=== PATIENT | male | born 1980 | race American Indian/Alaskan Native ===

== ENCOUNTER 2017-10-03 11:53 | Emergency (ER) | payer OTHER ==
[2017-10-03 12:18] VITALS: BP 124/79
[2017-10-03] MEDS ORDERED: TORADOL IM ONE (15:29)
--- NOTE | 2017-10-03 16:15 | Emergency Department Report ---
ED ENT HPI - General Chief complaint: Dental/Oral Stated complaint: TOOTHACHE Time Seen by Provider: 10/03/17 14:54 Source: patient Mode of arrival: Ambulatory Limitations: No Limitations - History of Present Illness Initial comments: This is a 37-year-old male nontoxic, well nourished in appearance, no acute signs of distress presents to the ED with c/o of dental pain 2 days. Patient denies any facial swelling. Patient denies any fever, chills, nausea, vomiting , just mentions of breath. Patient denies following up with a dentist. Patient denies any allergies or past medical history. MD complaint: tooth pain -: days(s) (2) Location: tooth # (18) 1 - toothache Severity: mild Severity scale (0 -10): 8 Quality: aching Consistency: constant Improves with: none Worsens with: none Context- Dental: history of dental caries, poor dental care Associated Symptoms: gum swelling, toothache. denies: fever, cough, pain with swallowing, sore throat, tinnitus, hearing loss, discharge from ear, rhinorrhea - Related Data Previous Rx's Medication Instructions Recorded Last Taken Type Amoxicillin 500 mg PO Q12H #20 tablet 11/24/14 Unknown Rx HYDROcodone/APAP 5-325 [[place] 1 each PO Q6HR PRN #12 tablet 11/24/14 Unknown Rx 5-325 mg TAB] Ibuprofen [Motrin 600 MG tab] 600 mg PO Q8H PRN #30 tablet 11/24/14 Unknown Rx Amoxicillin/K Clav Tab [Augmentin 1 tab PO Q12HR #20 tab 10/03/17 Unknown Rx 875 mg] traMADol [Ultram] 50 mg PO Q6HR PRN #12 tablet 10/03/17 Unknown Rx Allergies Allergy/AdvReac Type Severity Reaction Status Date / Time No Known Allergies Allergy Verified 10/03/17 12:16 ED Dental HPI - General Chief complaint: Dental/Oral Stated complaint: TOOTHACHE Time Seen by Provider: 10/03/17 14:54 Source: patient Mode of arrival: Ambulatory Limitations: No Limitations - Related Data Previous Rx's Medication Instructions Recorded Last Taken Type Amoxicillin 500 mg PO Q12H #20 tablet 11/24/14 Unknown Rx HYDROcodone/APAP 5-325 [[place] 1 each PO Q6HR PRN #12 tablet 11/24/14 Unknown Rx 5-325 mg TAB] Ibuprofen [Motrin 600 MG tab] 600 mg PO Q8H PRN #30 tablet 11/24/14 Unknown Rx Amoxicillin/K Clav Tab [Augmentin 1 tab PO Q12HR #20 tab 10/03/17 Unknown Rx 875 mg] traMADol [Ultram] 50 mg PO Q6HR PRN #12 tablet 10/03/17 Unknown Rx Allergies Allergy/AdvReac Type Severity Reaction Status Date / Time No Known Allergies Allergy Verified 10/03/17 12:16 ED Review of Systems ROS: Stated complaint: TOOTHACHE Other details as noted in HPI Constitutional: denies: chills, fever Eyes: denies: eye pain, eye discharge, vision change ENT: dental pain. denies: ear pain, throat pain Respiratory: denies: cough, shortness of breath, wheezing Cardiovascular: denies: chest pain, palpitations Endocrine: no symptoms reported Gastrointestinal: denies: abdominal pain, nausea, diarrhea Genitourinary: denies: urgency, dysuria Musculoskeletal: denies: back pain, joint swelling, arthralgia Skin: denies: rash, lesions Neurological: denies: headache, weakness, paresthesias Psychiatric: denies: anxiety, depression Hematological/Lymphatic: denies: easy bleeding, easy bruising ED Past Medical Hx - Past Medical History Previous Medical History?: No - Surgical History Past Surgical History?: No - Social History Smoking Status: Current Every Day Smoker Substance Use Type: Alcohol - Medications Home Medications: Home Medications Medication Instructions Recorded Confirmed Last Taken Type Amoxicillin 500 mg PO Q12H #20 tablet 11/24/14 Unknown Rx HYDROcodone/APAP 5-325 [[place] 1 each PO Q6HR PRN #12 tablet 11/24/14 Unknown Rx 5-325 mg TAB] Ibuprofen [Motrin 600 MG tab] 600 mg PO Q8H PRN #30 tablet 11/24/14 Unknown Rx Amoxicillin/K Clav Tab [Augmentin 1 tab PO Q12HR #20 tab 10/03/17 Unknown Rx 875 mg] traMADol [Ultram] 50 mg PO Q6HR PRN #12 tablet 10/03/17 Unknown Rx ED Physical Exam - General Limitations: No Limitations General appearance: alert, in no apparent distress - Head Head exam: Present: atraumatic, normocephalic, normal inspection - Eye Eye exam: Present: normal appearance, PERRL, EOMI. Absent: scleral icterus, conjunctival injection, nystagmus, periorbital swelling, periorbital tenderness Pupils: Present: normal accommodation - ENT ENT exam: Present: mucous membranes moist, TM's normal bilaterally, normal external ear exam - Expanded ENT Exam Expanded Ear exam: Present: normal external inspection Mouth exam: Present: normal external inspection, tongue normal. Absent: drooling, trismus, muffled voice, tongue elevation, laceration Teeth exam: Present: dental caries, fractured tooth # (18), dental tenderness # (18), gingival enlargement, other (No abscess or swelling noted) Throat exam: Positive: normal inspection. Negative: tonsillar erythema, tonsillomegaly, tonsillar exudate, R peritonsillar mass, L peritonsillar mass - Neck Neck exam: Present: normal inspection, full ROM. Absent: tenderness, meningismus, lymphadenopathy, thyromegaly - Respiratory Respiratory exam: Present: normal lung sounds bilaterally. Absent: respiratory distress, wheezes, rales, rhonchi, stridor, chest wall tenderness, accessory muscle use, decreased breath sounds, prolonged expiratory - Cardiovascular Cardiovascular Exam: Present: regular rate, normal rhythm, normal heart sounds. Absent: bradycardia, tachycardia, irregular rhythm, systolic murmur, diastolic murmur, rubs, gallop - GI/Abdominal GI/Abdominal exam: Present: soft, normal bowel sounds - Rectal Rectal exam: Present: deferred - Extremities Exam Extremities exam: Present: normal inspection - Back Exam Back exam: Present: normal inspection - Neurological Exam Neurological exam: Present: alert, oriented X3 - Psychiatric Psychiatric exam: Present: normal affect, normal mood - Skin Skin exam: Present: warm, dry, intact, normal color. Absent: rash ED Course Vital Signs 10/03/17 12:16 Temperature 99.4 F Pulse Rate 73 Respiratory 18 Rate Blood Pressure 124/79 O2 Sat by Pulse 98 Oximetry - Reevaluation(s) Reevaluation #1: 10/03/17 16:17 Patient is speaking in full sentences with no signs of distress noted. Critical care attestation.: If time is entered above; I have spent that time in minutes in the direct care of this critically ill patient, excluding procedure time. ED Disposition Clinical Impression: Dental caries, Gingivitis Disposition: TO HOME OR SELFCARE Is pt being admited?: No Does the pt Need Aspirin: No Condition: Stable Instructions: Dental Caries (ED), Gingivitis (ED), Tramadol (By mouth), Amoxicillin/Clavulanate Potassium (By mouth) Additional Instructions: Follow-up with a primary care doctor/dentist in 3-5 days or if symptoms worsen and continue return to emergency room as soon as possible. Prescriptions: Amoxicillin/K Clav Tab [Augmentin 875 mg] 1 tab PO Q12HR #20 tab traMADol [Ultram] 50 mg PO Q6HR PRN #12 tablet PRN Reason: Pain Referrals: PRIMARY CARE,MD [Primary Care Provider] - 3-5 Days [facility] [Outside] - 3-5 Days ADRIAN RASMUSSEN MD [Staff Physician] - 3-5 Days Forms: Work/School Release Form(ED)
== END 2017-10-03 16:36 | disposition home or self-care (01) ==
LOC: ED 11:53
DX: K05.10 Chronic gingivitis, plaque induced (principal); K08.89 Other specified disorders of teeth and supporting structures; F17.200 Nicotine dependence, unspecified, uncomplicated
CPT/HCPCS: 36415; 96372; 99283; G0480; J1885; 80320

== ENCOUNTER 2019-07-14 06:54 | Emergency (ER) | payer OTHER ==
[2019-07-14] MEDS ORDERED: SODIUM CHLORIDE 0.9% 1000 ML 1,000 ML IV ONE (07:47)
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
[2019-07-14 08:23] LABS: Basophils # (Auto) 0.1 K/mm3 (0.0-0.1); Basophils % (Auto) 0.6 % (0.0-1.8); Hemoglobin 14.5 gm/dl (11.8-15.2); Lymphocytes % (Auto) 5.9 % (13.4-35.0); Mean Corpuscular HGB Conc 34 % (32-34); Mean Corpuscular Volume 94 fl (84-94); Monocytes # (Auto) 0.9 K/mm3 (0.0-0.8); Monocytes % (Auto) 5.7 % (0.0-7.3); Platelet Count 263 K/mm3 (140-440); Red Blood Count 4.58 M/mm3 (3.65-5.03); Red Cell Distribution Width 13.5 % (13.2-15.2)
--- NOTE | 2019-07-14 08:27 | Cat Scan Report ---
CT head/brain wo con INDICATION / CLINICAL INFORMATION: Fall last night with head injury and pain. TECHNIQUE: All CT scans at this location are performed using CT dose reduction for ALARA by means of automated e xposure control. COMPARISON: None available. FINDINGS: The ventricular system is normal in size and configuration. No focal lesion or mass effect is seen. T here is no evidence of intracranial hemorrhage or major vessel occlusion. The calvarium is intact. Th e visualized nasal sinuses and mastoid air cells are clear. IMPRESSION: No acute abnormality. Signer Name: Davis Reeder MD Signed: 07/14/2019 8:22 AM Workstation Name: [id number]
[2019-07-14 08:38] LABS: BUN/Creatinine Ratio 8; Blood Urea Nitrogen 11 mg/dL (9-20); Calcium 9.1 mg/dL (8.4-10.2); Hemolysis Index 17
[2019-07-14 10:11] VITALS: BP 133/81
[2019-07-14 10:43] LABS: Amphetamine Screen,Urine PRESUMPTIVE NEGATIVE; Benzodiazepines Screen,Urine PRESUMPTIVE NEGATIVE; Methadone Screen,Urine PRESUMPTIVE NEGATIVE; Opiate Screen,Urine PRESUMPTIVE NEGATIVE
[2019-07-14 10:58] LABS: Cannabinoid Screen,Urine PRESUMPTIVE POSITIVE; Cocaine Screen,Urine PRESUMPTIVE POSITIVE
== END 2019-07-14 11:23 | disposition home or self-care (01) ==
LOC: ED 06:54
DX: S80.812A Abrasion, left lower leg, initial encounter (principal); S80.811A Abrasion, right lower leg, initial encounter; S09.90XA Unspecified injury of head, initial encounter; F14.10 Cocaine abuse, uncomplicated; F17.200 Nicotine dependence, unspecified, uncomplicated; Z79.899 Other long term (current) drug therapy; Y08.89XA Assault by other specified means, initial encounter; Y93.89 Activity, other specified; Y92.89 Other specified places as the place of occurrence of the external cause; Y99.8 Other external cause status
CPT/HCPCS: 36415; 70450; 80048; 80307; 85025; 99284; J7030; 80320; G0480

== ENCOUNTER 2021-10-09 03:53 | Emergency (ER) | payer OTHER ==
[2021-10-09] MEDS ORDERED: SODIUM CHLORIDE 0.9% 1000 ML 1,000 ML IV ONE (04:48)
[2021-10-09] MEDS ORDERED: LORazepam 2 MG/ML VIAL IV ONE ×2 (04:48→06:53)
--- NOTE | 2021-10-09 04:50 | Event Note ---
ED Screening Note Date of service: 10/09/21 Time: 04:49 ED Screening Note: Patient is a 41-year-old male present with a chief complaint of headache, palpitations and chest pain after "overdoing it" by consuming Percocet, mildly, ecstasy, consuming alcohol and smoking marijuana This initial assessment/diagnostic orders/clinical plan/treatment(s) is/are subject to change based on patients health status, clinical progression and re- assessment by fellow clinical providers in the ED. Further treatment and workup at subsequent clinical providers discretion. Patient/guardian urged not to elope from the ED as their condition may be serious if not clinically assessed and managed. Initial orders include: CBC, BMP, CK, CK-MB, troponin, EtOH, UDS Chest x-ray CT head EKG Ativan 1 mg IV
--- NOTE | 2021-10-09 05:35 | Cat Scan Report ---
CT HEAD WITHOUT CONTRAST INDICATION / CLINICAL INFORMATION: Headache after polysubstance abuse. TECHNIQUE: All CT scans at this location are performed using CT dose reduction for ALARA by means of automated exposure control. COMPARISON: 07/14/2019 FINDINGS: HEMORRHAGE: None. EXTRA-AXIAL SPACES: Normal in size and morphology for the patient's age. VENTRICULAR SYSTEM: Normal in size and morphology for the patient's age. CEREBRAL PARENCHYMA: No significant abnormality. No acute territorial infarct. MIDLINE SHIFT / HERNIATION: None. CEREBELLUM / BRAINSTEM: No significant abnormality. ORBITS: Normal as visualized SOFT TISSUES: No significant abnormality. SKULL: No significant abnormality. PARANASAL SINUSES / MASTOID AIR CELLS: Normal as visualized ADDITIONAL FINDINGS: None. IMPRESSION: 1. No acute intracranial abnormality. Signer Name: Raimundo Bravo DO Signed: 10/09/2021 5:30 AM Workstation Name: [id number]
[2021-10-09 06:02] LABS: Creatine Kinase MB 12.5 ng/mL (0.0-4.0)
[2021-10-09 06:03] LABS: BUN/Creatinine Ratio 13; Blood Urea Nitrogen 13 mg/dL (9-20); Calcium 9.8 mg/dL (8.4-10.2); Hemolysis Index 13
--- NOTE | 2021-10-09 06:08 | XRay Report ---
CHEST 1 VIEW 10/09/2021 5:32 AM INDICATION / CLINICAL INFORMATION: chest pain. COMPARISON: None available. FINDINGS: SUPPORT DEVICES: None. HEART / MEDIASTINUM: No significant abnormality. LUNGS / PLEURA: No significant pulmonary or pleural abnormality. No pneumothorax. ADDITIONAL FINDINGS: No significant additional findings. IMPRESSION: 1. No acute findings. Signer Name: Raimundo Bravo DO Signed: 10/09/2021 6:04 AM Workstation Name: [id number]
[2021-10-09 06:10] LABS: Basophils % (Auto) 0.3 % (0.0-1.8); Eosinophils % (Auto) 0.2 % (0.0-4.3); Hematocrit 44.6 % (35.5-45.6); Hemoglobin 15.1 gm/dl (11.8-15.2); Lymphocytes # (Auto) 1.3 K/mm3 (1.2-5.4); Lymphocytes % (Auto) 12.6 % (13.4-35.0); Mean Corpuscular HGB Conc 34 % (32-34); Mean Corpuscular Volume 95 fl (84-94); Monocytes % (Auto) 9.4 % (0.0-7.3); Platelet Count 264 K/mm3 (140-440); Red Cell Distribution Width 12.8 % (13.2-15.2)
--- NOTE | 2021-10-09 07:01 | Emergency Department Report ---
ED General Adult HPI - General Chief complaint: Chest Pain Stated complaint: CHEST PAIN, DRUG AND ETOH INJESTION Time Seen by Provider: 10/09/21 06:05 Source: patient, EMS Mode of arrival: Stretcher Limitations: Altered Mental Status - History of Present Illness Initial comments: Patient is 41 years old male with history of multiple drug abuse. Patient presented to the ER complaining of chest pain, diffuse with no radiation, headache since last night. Patient stated that he used combination of Percocet mildly and ecstasy. Patient denied any focal weakness numbness or tingling sensation. No shortness of breath. Patient denied any suicidal ideation. No homicidal ideation. No visual or auditory hallucination. - Related Data Previous Rx's Medication Instructions Recorded Last Taken Type Amoxicillin 500 mg PO Q12H #20 tablet 11/24/14 Unknown Rx HYDROcodone/APAP 5-325 [[place] 1 each PO Q6HR PRN #12 tablet 11/24/14 Unknown Rx 5-325 mg TAB] Ibuprofen [Motrin 600 MG tab] 600 mg PO Q8H PRN #30 tablet 11/24/14 Unknown Rx Amoxicillin/K Clav Tab [Augmentin 1 tab PO Q12HR #20 tab 10/03/17 Unknown Rx 875 mg] traMADoL [Ultram] 50 mg PO Q6HR PRN #12 tablet 10/03/17 Unknown Rx Allergies Allergy/AdvReac Type Severity Reaction Status Date / Time No Known Allergies Allergy Verified 10/03/17 12:16 ED Review of Systems ROS: Stated complaint: CHEST PAIN, DRUG AND ETOH INJESTION Other details as noted in HPI Comment: All other systems reviewed and negative Constitutional: denies: chills, fever Respiratory: denies: cough, shortness of breath, SOB with exertion Cardiovascular: chest pain, palpitations Gastrointestinal: denies: abdominal pain, nausea, vomiting Musculoskeletal: denies: back pain Neurological: headache. denies: weakness, numbness, paresthesias, confusion, abnormal gait ED Past Medical Hx - Social History Smoking Status: Current Every Day Smoker Substance Use Type: Alcohol - Medications Home Medications: Home Medications Medication Instructions Recorded Confirmed Last Taken Type Amoxicillin 500 mg PO Q12H #20 tablet 11/24/14 Unknown Rx HYDROcodone/APAP 5-325 [[place] 1 each PO Q6HR PRN #12 tablet 11/24/14 Unknown Rx 5-325 mg TAB] Ibuprofen [Motrin 600 MG tab] 600 mg PO Q8H PRN #30 tablet 11/24/14 Unknown Rx Amoxicillin/K Clav Tab [Augmentin 1 tab PO Q12HR #20 tab 10/03/17 Unknown Rx 875 mg] traMADoL [Ultram] 50 mg PO Q6HR PRN #12 tablet 10/03/17 Unknown Rx ED Physical Exam - General Limitations: Altered Mental Status General appearance: alert, anxious - Head Head exam: Present: atraumatic, normocephalic, normal inspection - Eye Eye exam: Present: normal appearance - ENT ENT exam: Present: normal exam, normal orophraynx, mucous membranes moist - Neck Neck exam: Present: normal inspection, full ROM. Absent: tenderness, meningismus - Respiratory Respiratory exam: Present: normal lung sounds bilaterally - Cardiovascular Cardiovascular Exam: Present: regular rate, normal rhythm, normal heart sounds - GI/Abdominal GI/Abdominal exam: Present: soft, normal bowel sounds. Absent: distended, tenderness, guarding, rebound, rigid, organomegaly, mass, bruit, pulsatile mass, hernia - Extremities Exam Extremities exam: Present: normal inspection, full ROM, normal capillary refill. Absent: tenderness - Back Exam Back exam: Present: normal inspection, full ROM. Absent: CVA tenderness (R), CVA tenderness (L) - Neurological Exam Neurological exam: Present: alert, oriented X3, CN II-XII intact, normal gait, reflexes normal. Absent: motor sensory deficit - Psychiatric Psychiatric exam: Present: normal mood - Skin Skin exam: Present: warm, intact, normal color ED Course Vital Signs 10/09/21 10/09/21 10/09/21 04:39 05:00 05:30 Temperature 98.9 F Pulse Rate 99 H 99 H 98 H Respiratory 20 31 H 30 H Rate Blood Pressure 171/98 162/90 Blood Pressure 164/75 [Left] O2 Sat by Pulse 96 75 L 99 Oximetry 10/09/21 10/09/21 10/09/21 06:00 06:30 07:00 Temperature Pulse Rate 114 H 101 H 108 H Respiratory 33 H 29 H 33 H Rate Blood Pressure 153/107 155/102 140/99 Blood Pressure [Left] O2 Sat by Pulse 99 98 95 Oximetry 10/09/21 10/09/21 10/09/21 07:25 09:00 09:30 Temperature Pulse Rate 105 H 105 H Respiratory 20 19 19 Rate Blood Pressure 113/36 116/34 Blood Pressure [Left] O2 Sat by Pulse 98 96 96 Oximetry 10/09/21 10/09/21 10/09/21 10:01 10:31 11:00 Temperature Pulse Rate 107 H 101 H 94 H Respiratory 22 15 21 Rate Blood Pressure 115/84 145/115 108/62 Blood Pressure [Left] O2 Sat by Pulse 98 85 94 Oximetry 10/09/21 10/09/21 10/09/21 11:30 12:00 12:30 Temperature Pulse Rate 95 H 99 H 98 H Respiratory 19 20 20 Rate Blood Pressure 114/66 105/61 113/62 Blood Pressure [Left] O2 Sat by Pulse 99 98 97 Oximetry 10/09/21 10/09/21 10/09/21 13:00 14:00 14:30 Temperature Pulse Rate 100 H 113 H 125 H Respiratory 20 21 19 Rate Blood Pressure 113/61 108/53 101/66 Blood Pressure [Left] O2 Sat by Pulse 94 99 98 Oximetry 10/09/21 10/09/21 10/09/21 15:00 15:30 16:00 Temperature Pulse Rate 107 H 119 H 104 H Respiratory 25 H 22 25 H Rate Blood Pressure 103/70 113/66 113/60 Blood Pressure [Left] O2 Sat by Pulse 97 96 98 Oximetry 10/09/21 16:31 Temperature Pulse Rate 138 H Respiratory 24 Rate Blood Pressure 172/64 Blood Pressure [Left] O2 Sat by Pulse 96 Oximetry ED Medical Decision Making - Lab Data Result diagrams: 10/09/21 05:20 10/09/21 05:20 - Medical Decision Making Patient is 41 years old male with history of multiple drug abuse. Patient presented to the ER complaining of chest pain, diffuse with no radiation, headache since last night. Patient stated that he used combination of Percocet mildly and ecstasy. Patient denied any focal weakness numbness or tingling sensation. No shortness of breath. Patient denied any suicidal ideation. No homicidal ideation. No visual or auditory hallucination. EKG is unremarkable. CT brain is negative for acute finding. Labs reviewed and is unremarkable except for positive UDS for. Patient received 3 mg of Ativan. Patient is hallucinating. Patient showing evidence of drug-induced psychosis. Patient given a dose of Geodon 20 mg IM. Critical care attestation.: If time is entered above; I have spent that time in minutes in the direct care of this critically ill patient, excluding procedure time. ED Disposition Clinical Impression: Drug-induced psychotic disorder, Polysubstance abuse, Acute chest pain, Acute headache Disposition: HOME / SELF CARE / HOMELESS Is pt being admited?: No Condition: Stable Instructions: Chest Pain (ED) Additional Instructions: Professional and Agency Contacts To help Resolve Crises(08/05) [place] Crisis Line: Suicide Prevention Line: Crisis Text Line: Text START to [phone] Emergency: 911 Outpatient COMMUNITY Behavioral Health Resources: JOSH: [facility] [address] [place], [place] [address] [place]: [facility] [address] [place] [address] [place]: [facility] - [address] [place] [address] Monday thru Monday - 8am - 5pm [facility] Address: [address] [place] [address] NONA: [facility] Address: [address] [place] [address] Monday thru Monday- 7am-2pm [facility] Address: [address] [place] [address] Monday thru Monday: 8:30AM-5PM OUTPATIENT MENTAL HEALTH RESOURCES [facility], [address] [place] [address] [facility] Chelsea Wilson MD: [address] [facility] [address] [place] [address] [facility]: [address] [place], [place] [id number] [place] [address] [phone] [facility]: [address] [facility] [address] [place] [address] [phone] [facility]: [address] [place] [address] [facility]: [address] [place], [place] Severiano Rosen MD: [address] [facility] [address] [facility]: [address] [place] [address] [id number] [phone] [place] CRISIS AND ACCESS LINE: * In case of an emergency, please contact the following numbers: [place] Crisis and Access Line: Number: Crisis Text Line: (Text START) Number: [phone] Suicide Prevention Line: Number: Emergency Number: 91 SUBSTANCE ABUSE PROGRAMS: [facility]: Location: [place], [place] [facility] Address: [address] [place] [address] [facility]: Address: [address] [place] [address] [facility]: Address: [address] [place] [address] [facility]: Address: [address] [place] [address] [facility] Address: [address] [place] [id number]. Please contact above numbers to attempt placement into free based program. Medicaid Programs: [facility]: Address: [address] [place] [address] [facility]: Address: [address] [place] [id number] Referrals: PRIMARY CAREMD [Primary Care Provider] - 3-5 Days
[2021-10-09 08:11] LABS: Benzodiazepines Screen,Urine Negative; Methadone Screen,Urine Negative; Opiate Screen,Urine Negative
[2021-10-09] MEDS ORDERED: ZIPRASIDONE MESYLATE 20 MG VIAL IM ONE (08:25)
[2021-10-09 08:38] LABS: Amphetamine Screen,Urine Positive; Cannabinoid Screen,Urine Positive; Cocaine Screen,Urine Positive
[2021-10-09 17:42] VITALS: BP 172/64
--- NOTE | 2021-10-11 10:44 | Electrocardiograph Report ---
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
== END 2021-10-09 19:17 | disposition home or self-care (01) ==
LOC: ED 03:53
DX: F19.251 Other psychoactive substance dependence with psychoactive substance-induced psychotic disorder with hallucinations (principal); R07.9 Chest pain, unspecified; R51.9 Headache, unspecified; F17.200 Nicotine dependence, unspecified, uncomplicated; F10.20 Alcohol dependence, uncomplicated
CPT/HCPCS: 36415; 70450; 71045; 80048; 80307; 82550; 82553; 84484; 85025; 93005; 96361; 96372; 96374; 96376; 99285; J2060; J3486; J7030; 80320; Q0162; G0480

== ENCOUNTER 2022-01-12 07:12 | Emergency (ER) | payer SELFPAY ==
[2022-01-12] MEDS ORDERED: SODIUM CHLORIDE 0.9% 1000 ML 1,000 ML IV ONE (08:00)
[2022-01-12] MEDS ORDERED: MORPHINE 4 MG/1 ML INJ IV ONE (08:01)
[2022-01-12] MEDS ORDERED: ONDANSETRON 4 MG/2 ML INJ IV ONE (08:01)
--- NOTE | 2022-01-12 08:04 | Emergency Department Report ---
ED Chest Pain HPI - General Chief Complaint: Chest Pain Stated Complaint: OVER DOSE COCAINE PUI?: No Time Seen by Provider: 01/12/22 07:53 Source: patient Mode of arrival: Ambulatory Limitations: No Limitations - History of Present Illness Initial Comments: CC: "I think I overdosed on cocaine." HPI: This is a 41 yo male with hx of cocaine use who presents with severe chest pain. He has binged on cocaine from 9 PM until one hour prior to arrival. Severe diffuse sharp chest pain. Suddent onset. MD Complaint: chest pain -: Sudden, hour(s) (one hour) Onset: during rest Pain Location: substernal, left chest, right chest Pain Radiation: none Severity: severe Severity scale (0 -10): 10 Quality: sharp Consistency: constant Improves With: nothing Worsens With: nothing Context: other (cocaine use) Treatments Prior to Arrival: none - Related Data Previous Rx's Medication Instructions Recorded Last Taken Type Amoxicillin 500 mg PO Q12H #20 tablet 11/24/14 Unknown Rx HYDROcodone/APAP 5-325 [[place] 1 each PO Q6HR PRN #12 tablet 11/24/14 Unknown Rx 5-325 mg TAB] Ibuprofen [Motrin 600 MG tab] 600 mg PO Q8H PRN #30 tablet 11/24/14 Unknown Rx Amoxicillin/K Clav Tab [Augmentin 1 tab PO Q12HR #20 tab 10/03/17 Unknown Rx 875 mg] traMADoL [Ultram] 50 mg PO Q6HR PRN #12 tablet 10/03/17 Unknown Rx Allergies Allergy/AdvReac Type Severity Reaction Status Date / Time No Known Allergies Allergy Verified 10/03/17 12:16 Heart Score - HEART Score History: Slightly suspicious EKG: Non-specific Age: 45-65 Risk factors: 1-2 risk factors Troponin: < normal limit HEART Score: 3 - EKG Read Time Time EKG Completed: 00:00 EKG Read Time: 00:00 - Critical Actions Critical Actions: 0-3 pts:0.9-1.7%risk of adverse cardiac event.Candidate for discharge ED Review of Systems ROS: Stated complaint: OVER DOSE COCAINE Other details as noted in HPI Comment: All other systems reviewed and negative Constitutional: denies: chills, fever, malaise Respiratory: shortness of breath. denies: cough Cardiovascular: chest pain Gastrointestinal: denies: abdominal pain, nausea, vomiting ED Past Medical Hx - Past Medical History Previous Medical History?: No - Surgical History Past Surgical History?: No - Family History Family history: hypertension - Social History Smoking Status: Current Every Day Smoker Substance Use Type: Alcohol, Cocaine - Medications Home Medications: Home Medications Medication Instructions Recorded Confirmed Last Taken Type Amoxicillin 500 mg PO Q12H #20 tablet 11/24/14 Unknown Rx HYDROcodone/APAP 5-325 [[place] 1 each PO Q6HR PRN #12 tablet 11/24/14 Unknown Rx 5-325 mg TAB] Ibuprofen [Motrin 600 MG tab] 600 mg PO Q8H PRN #30 tablet 11/24/14 Unknown Rx Amoxicillin/K Clav Tab [Augmentin 1 tab PO Q12HR #20 tab 10/03/17 Unknown Rx 875 mg] traMADoL [Ultram] 50 mg PO Q6HR PRN #12 tablet 10/03/17 Unknown Rx ED Physical Exam - General Limitations: No Limitations General appearance: alert, in no apparent distress - Head Head exam: Present: atraumatic, normocephalic - Eye Eye exam: Present: normal appearance - ENT ENT exam: Present: mucous membranes moist - Neck Neck exam: Present: normal inspection, full ROM - Respiratory Respiratory exam: Present: normal lung sounds bilaterally. Absent: respiratory distress, wheezes, rales, rhonchi - Cardiovascular Cardiovascular Exam: Present: regular rate, normal rhythm, normal heart sounds. Absent: systolic murmur, diastolic murmur, rubs, gallop - GI/Abdominal GI/Abdominal exam: Present: soft, normal bowel sounds. Absent: distended, tenderness, guarding, rebound - Rectal Rectal exam: Present: deferred - Extremities Exam Extremities exam: Present: normal inspection - Neurological Exam Neurological exam: Present: alert, oriented X3 - Psychiatric Psychiatric exam: Present: normal affect, anxious - Skin Skin exam: Present: warm, dry, intact, normal color. Absent: rash ED Course Vital Signs 01/12/22 01/12/22 01/12/22 07:17 09:04 09:05 Temperature 97.9 F Pulse Rate 114 H 88 89 Respiratory 18 24 18 Rate Blood Pressure 141/80 141/80 Blood Pressure 170/98 [Right] O2 Sat by Pulse 96 83 L 95 Oximetry ED Medical Decision Making - Lab Data Result diagrams: 01/12/22 08:49 01/12/22 08:49 - EKG Data -: EKG Interpreted by Oh EKG shows normal: sinus rhythm, axis, intervals Rate: normal, tachycardia - EKG Data Interpretation: LVH 01/12/22 08:36 EKG #1 obtained 0724 EKG interpreted by hi Sinus tachycardia rate 100 bpm normal axis normal intervals no ST elevation positive LVH EKG #2 obtained 0824 EKG interpreted by me Sinus tachycardia rate 100 bpm normal axis normal intervals no ST elevation nonischemic T wave pattern positive LVH 01/12/22 08:47 - Radiology Data Radiology results: report reviewed Patient Name: KARLOS VALLE Gender: Male Date of : 1980 Referring Provider: MEL COSTELLO Organization: [facility] Accession Number: [id number] Requested Date: January 12, 2022 08:00 Report Status: Final Requested Procedure: 1 Procedure Description: XR chest 1V ap Modality: XR Findings Reporting MD: Rian Priest Dictation Time: January 12, 2022 07:27 Children'S Librarian: Not available Rags Laborer Date: CHEST 1 VIEW 01/12/2022 8:06 AM INDICATION / CLINICAL INFORMATION: Chest Pain. COMPARISON: 10/09/2021 FINDINGS: SUPPORT DEVICES: None. HEART / MEDIASTINUM: No significant abnormality. LUNGS / PLEURA: No significant pulmonary or pleural abnormality. No pneumothorax. ADDITIONAL FINDINGS: No significant additional findings. IMPRESSION: 1. No acute findings. Signer Name: Rian Priest MD Signed: 01/12/2022 7:27 AM Workstation Name: [id number] Patient Name: KARLOS VALLE Gender: Male Date of : 1980 Referring Provider: MEL COSTELLO Organization: [facility] Accession Number: [id number] Requested Date: January 12, 2022 08:01 Report Status: Final Requested Procedure: 1 Procedure Description: CT angio chest Modality: CT Findings Reporting MD: Justino Hess Dictation Time: January 12, 2022 09:06 Children'S Librarian: Not available Rags Laborer Date: CTA CHEST WITH CONTRAST INDICATION / CLINICAL INFORMATION: severe chest pain cocaine use. TECHNIQUE: Axial CT images were obtained through the chest after injection of 100 cc Omni 350 IV contrast. 3 plane MIP and/ or 3D reconstructions were produced. All CT scans at this location are performed using CT dose reduction for ALARA by means of automated exposure control. COMPARISON: None available. FINDINGS: PULMONARY EMBOLUS: None. THORACIC AORTA: No significant abnormality. HEART: No significant abnormality. CORONARY ARTERY CALCIFICATION: Absent -- None. MEDIASTINUM / JESSICA: No significant abnormality. PLEURA: No pleural effusion. No pneumothorax. LUNGS: No acute air space or interstitial disease. ADDITIONAL FINDINGS: None. UPPER ABDOMEN: No acute findings. SKELETAL STRUCTURES: No significant osseous abnormality. IMPRESSION: 1. No CT evidence for pulmonary embolism. 2. No acute findings. Signer Name: Justino Hess MD Signed: 01/12/2022 9:06 AM Workstation Name: [id number] - Medical Decision Making Chest pain after cocaine binge: Aortic dissection ruled out with CT chest angiogram, acute VT ruled out with troponin x2 and serial EKG. Patient is discharged home. Heart score 3. Referred to funeral counselor for outpatient evaluation. Critical care attestation.: If time is entered above; I have spent that time in minutes in the direct care of this critically ill patient, excluding procedure time. ED Disposition Clinical Impression: Overdose of cocaine, Chest pain Disposition: 01 HOME / SELF CARE / HOMELESS Is pt being admited?: No Does the pt Need Aspirin: No Condition: Stable Instructions: Stimulant Use Disorder-Cocaine Referrals: PIYUSH NOONAN MD [Staff Physician] - 2-3 Days CINTHIA SON MD [Staff Physician] - 2-3 Days
--- NOTE | 2022-01-12 08:31 | XRay Report ---
CHEST 1 VIEW 01/12/2022 8:06 AM INDICATION / CLINICAL INFORMATION: Chest Pain. COMPARISON: 10/09/2021 FINDINGS: SUPPORT DEVICES: None. HEART / MEDIASTINUM: No significant abnormality. LUNGS / PLEURA: No significant pulmonary or pleural abnormality. No pneumothorax. ADDITIONAL FINDINGS: No significant additional findings. IMPRESSION: 1. No acute findings. Signer Name: Rian Priest MD Signed: 01/12/2022 8:27 AM Workstation Name: [id number]
[2022-01-12 09:10] LABS: Basophils % (Auto) 0.5 % (0.0-1.8); Hematocrit 44.4 % (35.5-45.6); Hemoglobin 14.8 gm/dl (11.8-15.2); Lymphocytes # (Auto) 1.2 K/mm3 (1.2-5.4); Lymphocytes % (Auto) 11.9 % (13.4-35.0); Mean Corpuscular HGB Conc 33 % (32-34); Mean Corpuscular Volume 95 fl (84-94); Monocytes # (Auto) 0.9 K/mm3 (0.0-0.8); Monocytes % (Auto) 9.2 % (0.0-7.3); Platelet Count 224 K/mm3 (140-440); Red Blood Count 4.69 M/mm3 (3.65-5.03); Red Cell Distribution Width 13.1 % (13.2-15.2)
[2022-01-12 09:33] LABS: Alanine Aminotransferase 15 units/L (7-56); Albumin 4.9 g/dL (3.9-5); BUN/Creatinine Ratio 15; Blood Urea Nitrogen 15 mg/dL (9-20); Calcium 9.9 mg/dL (8.4-10.2); Hemolysis Index 12
--- NOTE | 2022-01-12 10:11 | Cat Scan Report ---
CTA CHEST WITH CONTRAST INDICATION / CLINICAL INFORMATION: severe chest pain cocaine use. TECHNIQUE: Axial CT images were obtained through the chest after injection of 100 cc Omni 350 IV cont rast. 3 plane MIP and/or 3D reconstructions were produced. All CT scans at this location are performe d using CT dose reduction for ALARA by means of automated exposure control. COMPARISON: None available. FINDINGS: PULMONARY EMBOLUS: None. THORACIC AORTA: No significant abnormality. HEART: No significant abnormality. CORONARY ARTERY CALCIFICATION: Absent -- None. MEDIASTINUM / JESSICA: No significant abnormality. PLEURA: No pleural effusion. No pneumothorax. LUNGS: No acute air space or interstitial disease. ADDITIONAL FINDINGS: None. UPPER ABDOMEN: No acute findings. SKELETAL STRUCTURES: No significant osseous abnormality. IMPRESSION: 1. No CT evidence for pulmonary embolism. 2. No acute findings. Signer Name: Justino Hess MD Signed: 01/12/2022 10:06 AM Workstation Name: [id number]
[2022-01-12 14:06] VITALS: BP 105/56
--- NOTE | 2022-01-12 14:33 | Electrocardiograph Report ---
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
--- NOTE | 2022-01-16 10:53 | Electrocardiograph Report ---
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
== END 2022-01-12 14:07 | disposition home or self-care (01) ==
LOC: ED 07:12
DX: T40.5X1A Poisoning by cocaine, accidental (unintentional), initial encounter (principal); R07.9 Chest pain, unspecified; F17.200 Nicotine dependence, unspecified, uncomplicated; Y92.89 Other specified places as the place of occurrence of the external cause
CPT/HCPCS: 36415; 71045; 71275; 80053; 84484; 85025; 85379; 93005; 96361; 96374; 96375; 99284; J2270; J2405; J7030; Q9967; Q0162

== ENCOUNTER 2022-01-28 11:33 | Emergency (ER) | payer SELFPAY ==
[2022-01-28] MEDS ORDERED: LORazepam 2 MG/ML VIAL IV STA (11:52)
[2022-01-28] MEDS ORDERED: PANTOPRAZOLE 40 MG INJ IV ONE (11:52)
--- NOTE | 2022-01-28 11:54 | Emergency Department Report ---
ED General Adult HPI - General Chief complaint: Chest Pain Stated complaint: CHEST PAIN Time Seen by Provider: 01/28/22 11:43 Source: patient, EMS (Verbal report received from emergency medical services. EMS documentation not available at time of chart dictation ), RN notes reviewed, old records reviewed Mode of arrival: Stretcher Limitations: No Limitations - History of Present Illness Initial comments: The patient is a 42-year-old gentleman. He has a history of suspected polysubstance abuse. He was seen in this emergency department last month with a complaint of chest pain. He had a thorough cardiac work-up performed in the emergency room, including multiple negative cardiac enzymes, as well as CT scan of the chest which was negative for acute findings. The patient presents to the ER today with a complaint of chest pain. It does not radiate to the back, arms or neck. He denies vomiting, diaphoresis and exertional shortness of breath. He does admit to recreational crack cocaine use a few days ago. He is not homicidal or suicidal. He called EMS. EMS verbally reports to myself that they administered aspirin, nitroglycerin, and morphine. -: Sudden, hour(s) Location: chest Radiation: non-radiation Consistency: constant Improves with: none Worsens with: none Associated Symptoms: denies other symptoms - Related Data Previous Rx's Medication Instructions Recorded Last Taken Type Amoxicillin 500 mg PO Q12H #20 tablet 11/24/14 Unknown Rx HYDROcodone/APAP 5-325 [[place] 1 each PO Q6HR PRN #12 tablet 11/24/14 Unknown Rx 5-325 mg TAB] Ibuprofen [Motrin 600 MG tab] 600 mg PO Q8H PRN #30 tablet 11/24/14 Unknown Rx Amoxicillin/K Clav Tab [Augmentin 1 tab PO Q12HR #20 tab 10/03/17 Unknown Rx 875 mg] traMADoL [Ultram] 50 mg PO Q6HR PRN #12 tablet 10/03/17 Unknown Rx Allergies Allergy/AdvReac Type Severity Reaction Status Date / Time No Known Allergies Allergy Verified 10/03/17 12:16 ED Review of Systems ROS: Stated complaint: CHEST PAIN Other details as noted in HPI Constitutional: denies: fever Eyes: denies: eye discharge ENT: denies: hearing loss Respiratory: denies: wheezing Cardiovascular: chest pain Gastrointestinal: denies: abdominal pain, nausea, vomiting, hematemesis, melena, hematochezia Psychiatric: anxiety. denies: homicidal thoughts, suicidal thoughts ED Past Medical Hx - Social History Smoking Status: Current Every Day Smoker Substance Use Type: Alcohol, Cocaine - Medications Home Medications: Home Medications Medication Instructions Recorded Confirmed Last Taken Type Amoxicillin 500 mg PO Q12H #20 tablet 11/24/14 Unknown Rx HYDROcodone/APAP 5-325 [[place] 1 each PO Q6HR PRN #12 tablet 11/24/14 Unknown Rx 5-325 mg TAB] Ibuprofen [Motrin 600 MG tab] 600 mg PO Q8H PRN #30 tablet 11/24/14 Unknown Rx Amoxicillin/K Clav Tab [Augmentin 1 tab PO Q12HR #20 tab 10/03/17 Unknown Rx 875 mg] traMADoL [Ultram] 50 mg PO Q6HR PRN #12 tablet 10/03/17 Unknown Rx ED Physical Exam - General Limitations: No Limitations General appearance: alert, anxious - Head Head exam: Present: atraumatic, normocephalic - Eye Eye exam: Present: normal appearance, EOMI. Absent: nystagmus - ENT ENT exam: Present: normal exam, normal orophraynx, mucous membranes moist, normal external ear exam - Neck Neck exam: Present: normal inspection, full ROM. Absent: tenderness, meningismus - Respiratory Respiratory exam: Present: normal lung sounds bilaterally. Absent: respiratory distress, wheezes, rales, rhonchi, stridor, decreased breath sounds - Cardiovascular Cardiovascular Exam: Present: regular rate, normal rhythm, normal heart sounds. Absent: bradycardia, tachycardia, irregular rhythm, systolic murmur, diastolic murmur, rubs, gallop - GI/Abdominal GI/Abdominal exam: Present: soft. Absent: distended, tenderness, guarding, rebound, rigid, pulsatile mass - Rectal Rectal exam: Present: deferred - Extremities Exam Extremities exam: Present: normal inspection, full ROM, other (2+ pulses noted in the bilateral upper and lower extremities. There is no palpable cord. negative Homans sign. Muscular compartments are soft. The pelvis is stable.). Absent: pedal edema, calf tenderness - Back Exam Back exam: Present: normal inspection. Absent: tenderness, CVA tenderness (R), CVA tenderness (L), paraspinal tenderness, vertebral tenderness - Neurological Exam Neurological exam: Present: alert, oriented X3, other (No facial droop. Tongue midline. Extraocular movements intact bilaterally. Facial sensation intact to light touch in V1, V2, V3 distribution bilaterally. 5 and a 5 strength in 4 extremities. Sensation intact to light touch in 4 extremities.). Absent: motor sensory deficit - Psychiatric Psychiatric exam: Present: anxious. Absent: homicidal ideation, suicidal idea tion - Skin Skin exam: Present: warm, dry, intact, normal color. Absent: rash ED Course Vital Signs 01/28/22 01/28/22 01/28/22 11:51 12:00 12:30 Temperature Pulse Rate 79 80 Respiratory 39 H 17 Rate Blood Pressure 142/79 147/90 147/90 Blood Pressure [Left] O2 Sat by Pulse 100 100 99 Oximetry 01/28/22 01/28/22 01/28/22 12:34 12:49 13:00 Temperature 98.3 F Pulse Rate 79 Respiratory 16 Rate Blood Pressure 154/94 Blood Pressure [Left] O2 Sat by Pulse 100 98 Oximetry 01/28/22 01/28/22 01/28/22 13:30 14:00 14:30 Temperature Pulse Rate 82 103 H 78 Respiratory 26 H 22 28 H Rate Blood Pressure 124/71 155/94 155/90 Blood Pressure [Left] O2 Sat by Pulse 99 100 96 Oximetry 01/28/22 01/28/22 01/28/22 15:00 15:16 15:30 Temperature Pulse Rate 85 83 85 Respiratory 25 H 35 H 22 Rate Blood Pressure 145/83 145/83 145/87 Blood Pressure [Left] O2 Sat by Pulse 99 99 100 Oximetry 01/28/22 15:56 Temperature Pulse Rate 85 Respiratory 22 Rate Blood Pressure Blood Pressure 145/87 [Left] O2 Sat by Pulse 100 Oximetry - Reevaluation(s) Reevaluation #1: 01/28/22 12:51 Differential diagnosis, including not limited to: GERD, gastritis, hiatal hernia, pneumonia, costochondritis, anxiety, vasospasm, myocarditis, pericarditis, Assessment and plan: 41-year-old gentleman, who is afebrile, with reassuring vital signs, clinically sober, who is not currently tachycardic, tachypneic or hypoxic, who denies DVT and pulmonary embolism risk factors, low risk by Wells criteria for pulmonary embolism, PERC negative, EKG unchanged from prior, chest x-ray unremarkable, CT scan of the chest last month, negative for acute findings, equal pulses in the upper and lower extremities, no pulsatile abdominal mass, history and physical very unlikely to be consistent with acute aortic disease, especially given recent CT scan of the chest which is negative, presenting with nonspecific chest pain. Patient at low risk for major adverse cardiac event as per heart score. We will treat his symptoms, obtain troponin x2, and reassess. Presuming diagnostics unremarkable, he may be discharged to follow-up as an outpatient. I have advised the patient to abstain from crack cocaine consumption. 01/28/22 13:37 Patient is resting comfortably in stretcher His laboratory studies are unremarkable. Prehospital EKG is reviewed, and appears to be unchanged from today's EKG and prior EKG. Nursing team endorses that the patient has articulated improvement in symptoms. Awaiting repeat troponin. 01/28/22 14:34 Care be transferred to the oncoming ER physician, to follow-up on repeat troponin and reassess. Presuming repeat troponin negative, discharged with outpatient follow-up ED Medical Decision Making - Lab Data Result diagrams: 01/28/22 12:19 01/28/22 12:19 Vital Signs 01/28/22 01/28/22 01/28/22 11:51 12:00 12:30 Pulse Rate 79 80 Respiratory 39 H 17 Rate Blood Pressure 142/79 147/90 147/90 O2 Sat by Pulse 100 100 99 Oximetry 01/28/22 12:34 Pulse Rate Respiratory Rate Blood Pressure O2 Sat by Pulse 100 Oximetry - EKG Data -: EKG Interpreted by Nh EKG shows normal: sinus rhythm Rate: normal - EKG Data When compared to previous EKG there are: no significant change 01/28/22 12:48 The EKG is interpreted at 11: 40 4 AM Sinus rhythm, 86 bpm. Borderline rightward axis deviation, left ventricular hypertrophy/high left ventricular voltage, QTC 4 6 9 ms, and motion artifact. Early repolarization. Abnormal EKG. Not a STEMI. Essentially unchanged when compared to prior EKG from December 2021 - Radiology Data Radiology results: pending, report reviewed, image reviewed CHEST 1 VIEW 01/28/2022 12:08 PM INDICATION / CLINICAL INFORMATION: acute chest pain. COMPARISON: 01/12/2022 FINDINGS: SUPPORT DEVICES: None. HEART / MEDIASTINUM: No significant abnormality. LUNGS / PLEURA: No significant pulmonary or pleural abnormality. No pneumothorax. ADDITIONAL FINDINGS: No significant additional findings. IMPRESSION: No acute abnormality. Signer Name: Alejandro Prescott MD Signed: 01/28/2022 11:34 AM Workstation Name: [id number] CTA CHEST WITH CONTRAST INDICATION / CLINICAL INFORMATION: severe chest pain cocaine use. TECHNIQUE: Axial CT images were obtained through the chest after injection of 100 cc Omni 350 IV contrast. 3 plane MIP and/or 3D reconstructions were produced. All CT scans at this location are performed using CT dose reduction for ALARA by means of automated exposure control. COMPARISON: None available. FINDINGS: PULMONARY EMBOLUS: None. THORACIC AORTA: No significant abnormality. HEART: No significant abnormality. CORONARY ARTERY CALCIFICATION: Absent -- None. MEDIASTINUM / JESSICA: No significant abnormality. PLEURA: No pleural effusion. No pneumothorax. LUNGS: No acute air space or interstitial disease. ADDITIONAL FINDINGS: None. UPPER ABDOMEN: No acute findings. SKELETAL STRUCTURES: No significant osseous abnormality. IMPRESSION: 1. No CT evidence for pulmonary embolism. 2. No acute findings. Signer Name: Justino Hess MD Signed: 01/12/2022 9:06 AM Workstation Name: [id number] Critical care attestation.: If time is entered above; I have spent that time in minutes in the direct care of this critically ill patient, excluding procedure time. ED Disposition Clinical Impression: Nonspecific chest pain Disposition: 01 HOME / SELF CARE / HOMELESS Is pt being admited?: No Does the pt Need Aspirin: No Condition: Stable Instructions: Nonspecific Chest Pain, Adult Additional Instructions: Please avoid consumption of Motrin, ibuprofen, Naprosyn, Aleve, alcohol, tobacco, smoke products, crack cocaine and recreational drugs. Patient may take [id number] Tylenol, Pepcid, Protonix as needed for physical pain. Recommend the patient follow-up with a primary care doctor or domestic technician for nonspecific chest pain in the next 3 to 5 days. Please return to the emergency room right away with new pain, worsened pain, migration of pain, projectile vomiting, change in mental status, confusion, inability tolerate liquid feeds, new, worsened or different symptoms not present on the initial emergency room evaluation Referrals: [facility] [Provider Group] - 3-5 Days [facility] [Provider Group] - 3-5 Days Forms: Work/School Release Form(ED) Heart Score - HEART Score History: Slightly suspicious EKG: Non-specific Age: < 45 Risk factors: 1-2 risk factors Troponin: < normal limit HEART Score: 2 - EKG Read Time Time EKG Completed: 11:44 EKG Read Time: 11:44 - Critical Actions Critical Actions: 0-3 pts:0.9-1.7%risk of adverse cardiac event.Candidate for discharge
--- NOTE | 2022-01-28 12:38 | XRay Report ---
CHEST 1 VIEW 01/28/2022 12:08 PM INDICATION / CLINICAL INFORMATION: acute chest pain. COMPARISON: 01/12/2022 FINDINGS: SUPPORT DEVICES: None. HEART / MEDIASTINUM: No significant abnormality. LUNGS / PLEURA: No significant pulmonary or pleural abnormality. No pneumothorax. ADDITIONAL FINDINGS: No significant additional findings. IMPRESSION: No acute abnormality. Signer Name: Alejandro Prescott MD Signed: 01/28/2022 12:34 PM Workstation Name: [id number]
[2022-01-28 13:01] LABS: Hematocrit 44.8 % (35.5-45.6); Hemoglobin 15.1 gm/dl (11.8-15.2)
[2022-01-28 13:32] LABS: BUN/Creatinine Ratio 12; Blood Urea Nitrogen 11 mg/dL (9-20); Calcium 10.1 mg/dL (8.4-10.2); Hemolysis Index 13
[2022-01-28 15:56] VITALS: BP 145/87
--- NOTE | 2022-01-31 14:01 | Electrocardiograph Report ---
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
== END 2022-01-28 15:57 | disposition home or self-care (01) ==
LOC: ED 11:33
DX: R07.89 Other chest pain (principal); F17.200 Nicotine dependence, unspecified, uncomplicated; F14.90 Cocaine use, unspecified, uncomplicated; Z72.89 Other problems related to lifestyle; Z79.899 Other long term (current) drug therapy
CPT/HCPCS: 36415; 71045; 80048; 82550; 84484; 85014; 85018; 93005; 96374; 96375; 99284; C9113; J2060; 80320; G0480

== ENCOUNTER 2022-02-03 04:56 | Emergency (ER) | payer SELFPAY ==
--- NOTE | 2022-02-03 05:43 | XRay Report ---
CHEST 1 VIEW INDICATION / CLINICAL INFORMATION: Chest pain. COMPARISON: Chest x-ray 01/28/2022 FINDINGS: Heart size appears within normal limits. Mediastinal contour demonstrates no significant abnormality. Pulmonary vasculature appears within normal limits. Lungs are clear. Bones and soft tissues demonstr ate no significant abnormalities. IMPRESSION: 1. No active cardiopulmonary disease. Signer Name: Ashok Humphrey II, MD Signed: 02/03/2022 5:38 AM Workstation Name: [id number]
[2022-02-03 06:09] LABS: Basophils # (Auto) 0.1 K/mm3 (0.0-0.1); Basophils % (Auto) 0.6 % (0.0-1.8); Hematocrit 41.2 % (35.5-45.6); Hemoglobin 13.9 gm/dl (11.8-15.2); Lymphocytes # (Auto) 1.4 K/mm3 (1.2-5.4); Lymphocytes % (Auto) 14.3 % (13.4-35.0); Mean Corpuscular HGB Conc 34 % (32-34); Mean Corpuscular Volume 93 fl (84-94); Monocytes # (Auto) 0.9 K/mm3 (0.0-0.8); Monocytes % (Auto) 9.3 % (0.0-7.3); Platelet Count 261 K/mm3 (140-440); Red Blood Count 4.44 M/mm3 (3.65-5.03)
[2022-02-03] MEDS ORDERED: LORazepam 2 MG/ML VIAL IV ONE (06:19)
[2022-02-03] MEDS ORDERED: ASPIRIN 325 MG TAB PO ONE (06:19)
[2022-02-03 06:29] LABS: Alanine Aminotransferase 13 units/L (7-56); Albumin 4.9 g/dL (3.9-5); BUN/Creatinine Ratio 15; Blood Urea Nitrogen 17 mg/dL (9-20); Calcium 10.2 mg/dL (8.4-10.2); Hemolysis Index 4
--- NOTE | 2022-02-03 07:05 | Emergency Department Report ---
ED Chest Pain HPI - General Chief Complaint: Chest Pain Stated Complaint: CHEST PAIN Time Seen by Provider: 02/03/22 06:03 Source: EMS Mode of arrival: Stretcher Limitations: No Limitations - History of Present Illness Initial Comments: 41-year-old male with no significant past medical history presents to the hospital complaining of chest pain that started 30 minutes prior to arrival. Pain is a poking/stabbing pain that is constant, in the middle of his chest, worse with movement, palpation, and deep inspiration. Patient also feeling muscle spasms and that his right hand and right leg are intermittently locking up. He also feels better with his left arm extended and shoulder abducted because certain arm movements exacerbate his chest pain. Patient endorses shortness of breath secondary to pain. Patient admits to cocaine use with last use 2 weeks ago. He does smoke cigarettes. He used Laura earlier this morning. He has unclear history of CAD and states his mother has a pacemaker but he is unclear about the details of her cardiac history. He denies calf tenderness or leg edema. No previous history of cardiac cath or stress test - Related Data Previous Rx's Medication Instructions Recorded Last Taken Type Amoxicillin 500 mg PO Q12H #20 tablet 11/24/14 Unknown Rx HYDROcodone/APAP 5-325 [[place] 1 each PO Q6HR PRN #12 tablet 11/24/14 Unknown Rx 5-325 mg TAB] Ibuprofen [Motrin 600 MG tab] 600 mg PO Q8H PRN #30 tablet 11/24/14 Unknown Rx Amoxicillin/K Clav Tab [Augmentin 1 tab PO Q12HR #20 tab 10/03/17 Unknown Rx 875 mg] traMADoL [Ultram] 50 mg PO Q6HR PRN #12 tablet 10/03/17 Unknown Rx Allergies Allergy/AdvReac Type Severity Reaction Status Date / Time No Known Allergies Allergy Verified 10/03/17 12:16 Heart Score - HEART Score History: Slightly suspicious EKG: Non-specific Age: < 45 Risk factors: 1-2 risk factors Troponin: < normal limit HEART Score: 2 - EKG Read Time Time EKG Completed: 05:30 EKG Read Time: 05:33 ED Review of Systems ROS: Stated complaint: CHEST PAIN Other details as noted in HPI Comment: All other systems reviewed and negative ED Past Medical Hx - Social History Smoking Status: Current Every Day Smoker Substance Use Type: Cocaine - Medications Home Medications: Home Medications Medication Instructions Recorded Confirmed Last Taken Type Amoxicillin 500 mg PO Q12H #20 tablet 11/24/14 Unknown Rx HYDROcodone/APAP 5-325 [[place] 1 each PO Q6HR PRN #12 tablet 11/24/14 Unknown Rx 5-325 mg TAB] Ibuprofen [Motrin 600 MG tab] 600 mg PO Q8H PRN #30 tablet 11/24/14 Unknown Rx Amoxicillin/K Clav Tab [Augmentin 1 tab PO Q12HR #20 tab 10/03/17 Unknown Rx 875 mg] traMADoL [Ultram] 50 mg PO Q6HR PRN #12 tablet 10/03/17 Unknown Rx ED Physical Exam - General Limitations: No Limitations - Other Other exam information: General: No acute distress Head: Atraumatic Eyes: normal appearance ENT: Moist mucous membranes Neck: Normal appearance, no midline tenderness Chest: Bilateral anterior chest wall tenderness including sternal CV: Regular rate and rhythm Abdomen: Soft, normal bowel sounds, nontender, nondistended, no rebound or guarding Back: Normal inspection Extremity: Normal inspection, full range of motion, no calf tenderness or leg edema Neuro: Alert O x 3, no facial asymmetry, speech clear, no gross motor sensory deficit Psych: Appropriate behavior Skin: No rash ED Course Vital Signs 02/03/22 02/03/22 02/03/22 05:08 06:01 06:10 Temperature 97.8 F Pulse Rate 106 H 92 H Respiratory 16 29 H 14 Rate Blood Pressure 140/80 150/88 Blood Pressure [Left] O2 Sat by Pulse 100 100 99 Oximetry 02/03/22 02/03/22 02/03/22 06:15 06:31 06:45 Temperature Pulse Rate 87 89 91 H Respiratory 12 19 26 H Rate Blood Pressure 142/78 143/91 141/69 Blood Pressure [Left] O2 Sat by Pulse 99 99 96 Oximetry 02/03/22 02/03/22 02/03/22 07:01 07:15 07:31 Temperature Pulse Rate 97 H 97 H 97 H Respiratory 17 24 16 Rate Blood Pressure 141/69 143/79 138/74 Blood Pressure [Left] O2 Sat by Pulse 98 99 98 Oximetry 02/03/22 02/03/22 02/03/22 07:45 08:01 08:15 Temperature Pulse Rate 91 H 95 H 90 Respiratory 23 17 26 H Rate Blood Pressure 143/81 147/82 146/81 Blood Pressure [Left] O2 Sat by Pulse 97 98 98 Oximetry 02/03/22 02/03/22 02/03/22 08:31 08:45 09:01 Temperature Pulse Rate 99 H 88 90 Respiratory 25 H 21 22 Rate Blood Pressure 146/79 142/86 152/82 Blood Pressure [Left] O2 Sat by Pulse 99 99 99 Oximetry 02/03/22 02/03/22 02/03/22 09:15 09:31 09:45 Temperature Pulse Rate 88 82 88 Respiratory 19 23 21 Rate Blood Pressure 139/78 140/73 137/78 Blood Pressure [Left] O2 Sat by Pulse 99 98 99 Oximetry 02/03/22 02/03/22 02/03/22 10:01 10:15 10:31 Temperature Pulse Rate 108 H Respiratory 22 Rate Blood Pressure 155/86 155/86 155/86 Blood Pressure [Left] O2 Sat by Pulse 99 98 99 Oximetry 02/03/22 02/03/22 02/03/22 10:45 11:01 11:15 Temperature Pulse Rate 93 H 79 Respiratory 31 H 20 Rate Blood Pressure 155/86 146/83 147/79 Blood Pressure [Left] O2 Sat by Pulse 100 100 98 Oximetry 02/03/22 02/03/22 02/03/22 11:31 11:45 12:01 Temperature Pulse Rate 80 93 H 88 Respiratory 21 20 20 Rate Blood Pressure 151/82 146/78 154/90 Blood Pressure [Left] O2 Sat by Pulse 99 97 98 Oximetry 02/03/22 02/03/22 02/03/22 12:15 12:31 12:45 Temperature Pulse Rate 96 H 104 H 83 Respiratory 14 19 13 Rate Blood Pressure 167/98 155/94 157/96 Blood Pressure [Left] O2 Sat by Pulse 97 99 98 Oximetry 02/03/22 02/03/22 02/03/22 13:01 13:15 13:31 Temperature Pulse Rate 90 84 81 Respiratory 23 26 H 27 H Rate Blood Pressure 148/88 146/81 146/77 Blood Pressure [Left] O2 Sat by Pulse 98 99 97 Oximetry 02/03/22 02/03/22 02/03/22 13:45 14:01 14:15 Temperature Pulse Rate 83 94 H 83 Respiratory 40 H 30 H 29 H Rate Blood Pressure 146/89 134/79 144/79 Blood Pressure [Left] O2 Sat by Pulse 98 98 99 Oximetry 02/03/22 02/03/22 02/03/22 14:31 14:45 15:01 Temperature Pulse Rate 98 H 89 91 H Respiratory 29 H 24 20 Rate Blood Pressure 123/65 154/98 154/95 Blood Pressure [Left] O2 Sat by Pulse 99 98 99 Oximetry 02/03/22 02/03/22 02/03/22 15:15 15:19 15:20 Temperature Pulse Rate 76 83 Respiratory 19 18 Rate Blood Pressure 153/91 153/91 Blood Pressure [Left] O2 Sat by Pulse 98 Oximetry 02/04/22 02/04/22 02/04/22 03:13 09:44 10:47 Temperature 98.2 F Pulse Rate 98 H Respiratory 18 Rate Blood Pressure Blood Pressure 118/80 [Left] O2 Sat by Pulse 100 98 100 Oximetry - Consultations Consultation #1: 02/03/22 11:25 Case discussed with on-call operations vocational instructor Dr. Aaron who reviewed EKG. Does not recommend admission for stress testing at this time and patient can follow-up for further cardiac evaluation BOB score - Bob Score Age > 65: (0) No Aspirin use within the Past 7 Days: (0) No 3 or more CAD Risk Factors: (0) No 2 or more Angina events in past 24 hrs: (0) No Known CAD with more than 50% Stenosis: (0) No Elevated Cardiac Markers: (0) No ST Deviation Greater than 0.5mm: (0) No BOB Score: 0 ED Medical Decision Making - Lab Data Result diagrams: 02/03/22 05:46 02/03/22 05:46 Lab Results 02/03/22 02/03/22 02/03/22 Range/Units 05:46 05:46 05:46 WBC 9.6 (4.5-11.0) K/mm3 RBC 4.44 (3.65-5.03) M/mm3 Hgb 13.9 (11.8-15.2) gm/dl Hct 41.2 (35.5-45.6) % MCV 93 (84-94) fl MCH 31 (28-32) pg MCHC 34 (32-34) % RDW 13.0 L (13.2-15.2) % Plt Count 261 (140-440) K/mm3 Lymph % (Auto) 14.3 (13.4-35.0) % Trinity % (Auto) 9.3 H (0.0-7.3) % Eos % (Auto) 0.0 (0.0-4.3) % Baso % (Auto) 0.6 (0.0-1.8) % Lymph # (Auto) 1.4 (1.2-5.4) K/mm3 Trinity # (Auto) 0.9 H (0.0-0.8) K/mm3 Eos # (Auto) 0.0 (0.0-0.4) K/mm3 Baso # (Auto) 0.1 (0.0-0.1) K/mm3 Seg Neutrophils % 75.8 H (40.0-70.0) % Seg Neutrophils # 7.3 (1.8-7.7) K/mm3 Sodium 137 (137-145) mmol/L Potassium 4.1 (3.6-5.0) mmol/L Chloride 97.6 L (98-107) mmol/L Carbon Dioxide 21 L (22-30) mmol/L Anion Gap 23 mmol/L BUN 17 (9-20) mg/dL Creatinine 1.1 (0.8-1.3) mg/dL Estimated GFR > 60 ml/min BUN/Creatinine Ratio 15 % Glucose 101 H (75-100) mg/dL Calcium 10.2 (8.4-10.2) mg/dL Magnesium 1.70 (1.7-2.3) mg/dL Total Bilirubin 0.30 (0.1-1.2) mg/dL AST 17 (5-40) units/L ALT 13 (7-56) units/L Alkaline Phosphatase 80 (35-129) units/L Total Creatine Kinase 176 H (55-170) units/L Troponin T < 0.010 (0.00-0.029) ng/mL Total Protein 7.2 (6.3-8.2) g/dL Albumin 4.9 (3.9-5) g/dL Albumin/Globulin Ratio 2.1 % Urine Opiates Screen Urine Methadone Screen Ur Barbiturates Screen Ur Phencyclidine Scrn Ur Amphetamines Screen U Benzodiazepines Scrn Urine Cocaine Screen U Marijuana (THC) Screen Drugs of Abuse Note 02/03/22 02/03/22 Range/Units 08:17 09:13 WBC (4.5-11.0) K/mm3 RBC (3.65-5.03) M/mm3 Hgb (11.8-15.2) gm/dl Hct (35.5-45.6) % MCV (84-94) fl MCH (28-32) pg MCHC (32-34) % RDW (13.2-15.2) % Plt Count (140-440) K/mm3 Lymph % (Auto) (13.4-35.0) % Trinity % (Auto) (0.0-7.3) % Eos % (Auto) (0.0-4.3) % Baso % (Auto) (0.0-1.8) % Lymph # (Auto) (1.2-5.4) K/mm3 Trinity # (Auto) (0.0-0.8) K/mm3 Eos # (Auto) (0.0-0.4) K/mm3 Baso # (Auto) (0.0-0.1) K/mm3 Seg Neutrophils % (40.0-70.0) % Seg Neutrophils # (1.8-7.7) K/mm3 Sodium (137-145) mmol/L Potassium (3.6-5.0) mmol/L Chloride (98-107) mmol/L Carbon Dioxide (22-30) mmol/L Anion Gap mmol/L BUN (9-20) mg/dL Creatinine (0.8-1.3) mg/dL Estimated GFR ml/min BUN/Creatinine Ratio % Glucose (75-100) mg/dL Calcium (8.4-10.2) mg/dL Magnesium (1.7-2.3) mg/dL Total Bilirubin (0.1-1.2) mg/dL AST (5-40) units/L ALT (7-56) units/L Alkaline Phosphatase (35-129) units/L Total Creatine Kinase (55-170) units/L Troponin T < 0.010 (0.00-0.029) ng/mL Total Protein (6.3-8.2) g/dL Albumin (3.9-5) g/dL Albumin/Globulin Ratio % Urine Opiates Screen Negative Urine Methadone Screen Negative Ur Barbiturates Screen Negative Ur Phencyclidine Scrn Negative Ur Amphetamines Screen Positive U Benzodiazepines Scrn Negative Urine Cocaine Screen Negative U Marijuana (THC) Screen Positive Drugs of Abuse Note Disclamer Tylenol, aspirin, alcohol negative - EKG Data -: EKG Interpreted by Me (Left atrial enlargement) EKG shows normal: sinus rhythm, ST-T waves (LVH) Rate: tachycardia (102) - Radiology Data Radiology results: report reviewed (cxr: naf as per radiology) - Medical Decision Making 41-year-old male presents to the hospital atypical chest pain after using mildly. Patient has a EKG showing LVH without signs of ischemia and troponin negative x3. Patient also has a low risk for PE with a negative D-dimer. Patient appears anxious during ED stay and intermittent hyperventilating despite receiving aspirin and Ativan. He expresses concern because 2 guys were out to get him and have threatened his life and he wants to be seen for homicidal ideation towards these men. He voiced understanding that this means I will sign a 1013 and obtain psych evaluation with possible psychiatric hospital transfer . 1013 signed and psych assessment ordered. Patient is medically cleared. BP noted to be elevated. Patient will be started on Norvasc daily and Motrin as needed pain. Case was discussed with operations vocational instructor who does not recommend inp atient treatment at this time. outpatient follow-up with cardiology will be provided Critical Care Time: No Critical care attestation.: If time is entered above; I have spent that time in minutes in the direct care of this critically ill patient, excluding procedure time. ED Disposition Clinical Impression: Nonspecific chest pain, Amphetamine abuse, Cocaine abuse, Hypertension, Homicidal ideation, Medical clearance for psychiatric admission Disposition: [address] [place] [address] HOSPITAL Is pt being admited?: No Does the pt Need Aspirin: No Condition: Stable Instructions: Hypertension (ED) Additional Instructions: In case of an emergency, please contact the following numbers: [place] Crisis and Access Line: Number: Crisis Text Line: (Text START) Number: [phone] Suicide Prevention Line: Number: Emergency Number: 911 SUBSTANCE ABUSE PROGRAMS: [facility]: Location: [place] [place] [facility] Address: [address] [place] [address] [facility]: Address: [address] [place], [place] [id number] [facility]: Address: [address] [place] [address] [facility]: Address: [address] [place] [address] [facility] Address: [address] [place] [address]. Please contact above numbers to attempt placement into free based program. Medicaid Programs: [facility]: Address: [address] [place] [address] [facility]: Address: [address] [place] [id number] Referrals: EMPERATRIZ AARON MD [Staff Physician] - 3-5 Days (cardiology )
[2022-02-03 09:28] LABS: Benzodiazepines Screen,Urine Negative; Cocaine Screen,Urine Negative; Methadone Screen,Urine Negative; Opiate Screen,Urine Negative
[2022-02-03 09:42] LABS: Amphetamine Screen,Urine Positive; Cannabinoid Screen,Urine Positive
--- NOTE | 2022-02-03 10:36 | Electrocardiograph Report ---
[facility] Test Date: 2022-02-03 Test Time: 05:30:58 Pat Name: KARLOS VALLE Department: Room: Gender: M [employer] Developer: JAYLAN CELAYA : 1980 Requested By: LIBERTAD ZHENG Order Number: [id number] Reading MD: Rambo Tomlinson Measurements Intervals [place] Rate: 102 P: 99 CO: 123 QRS: 80 QRSD: 88 T: 54 QT: 356 QTc: 464 Interpretive Statements Sinus tachycardia Probable left atrial enlargement Probable left ventricular hypertrophy Compared to ECG 01/28/2022 11:44:24 Sinus rhythm no longer present Right-axis deviation no longer present Electronically Signed On 02-03-2022 10:36:18 EDT by Rambo Tomlinson
[2022-02-03] MEDS ORDERED: IBUPROFEN 800 MG TAB PO PRN (13:01)
[2022-02-03] MEDS: amLODIPine 5 MG TAB PO SCH (15:20)
--- NOTE | 2022-02-04 08:34 | Consultation ---
History of Present Illness - Reason for Consult Consult date: 02/04/22 Reason for consult: chest pain, drug use - History of Present Psychiatric Illness HPI: 41-year-old male with no significant past medical history presents to the hospital complaining of chest pain that started 30 minutes prior to arrival. Pain is a poking/stabbing pain that is constant, in the middle of his chest, worse with movement, palpation, and deep inspiration. Patient also feeling muscle spasms and that his right hand and right leg are intermittently locking up. He also feels better with his left arm extended and shoulder abducted because certain arm movements exacerbate his chest pain. Patient endorses shortness of breath secondary to pain. Patient admits to cocaine use with last use 2 weeks ago. He does smoke cigarettes. He used Edvin earlier this morning. He has unclear history of CAD and states his mother has a pacemaker but he is unclear about the details of her cardiac history. He denies calf tenderness or leg edema. No previous history of cardiac cath or stress test. The patient was seen today. He is calm, cooperative and pleasant. The patient is smiling. He says he came to the hospital for chest pain. The patient says "I popped a edvin and started having chest pain." He says "it's a weekend thing." The patient also says he smokes THC "everyday." He denies any other drug use, although he's positive for amphetamines and admitted to cocaine previously according to HPI. The patient denies SI/HI. He says "there was a misunderstanding. I told them that somebody was after me and I would defend myself. But I'm not suicidal or homicidal." The patient denies hallucinations of any kind. He says "look I work and trying to make some money like you. I have to go to work today. I'm engaged and lives with my fiance." The patient says "I've had time to sleep all that off. It was the edvin." PAST PSYCHIATRIC HISTORY: Diagnoses: Denies Suicide attempts or Self-harm behavior: Denies Prior psychiatric hospitalizations: Denies Substance Abuse history: Edvin, Cocaine, THC, Methamphetamines Previous psychiatric medications tried: Denies Outpatient treatment: Denies PAST MEDICAL HISTORY: None reported or document Family Psychiatric History: None reported or documented SOCIAL HISTORY Marital Status: engaged Living Arrangements: Lives with fiance Employment Status: Employed Access to guns/weapons: denies Education: high school History of Abuse: Denies Legal History: Denies REVIEW OF SYSTEMS Constitutional: Negative for weight loss ENT: Negative for stridor Respiratory: Negative for cough or hemoptysis All other systems reviewed and are negative MENTAL STATUS EXAMINATION General Appearance and Behavior: Age appropriate, wearing appropriate clothes, cooperative, polite with questioning, good eye contact, calm Cooperation: cooperative Psychomotor Behavior: Psychomotor normal Mood: "good" Affect and affective range: congruent with stated mood Thought Process: goal directed Thought Content: None Speech: Normal volume, Regular rate and rhythm Suicidal Ideation: Denies Homicidal Ideation: Denies hallucination: Denies Delusions: None elicited Impulse Control: Normal Insight and Judgment: Limited Memory: Intact Attention: attentive, engaging Orientation: Alert and oriented Diagnoses: Polysubstance Abuse with Substance Induced Mood Disorder Treatment Plan d/c 1013 No scripts given PSYCHOTHERAPY: Supportive psychotherapy provided MEDICAL: Per primary team DELIRIUM PRECAUTIONS: Please re-orient patient frequently, keep lights on during the day, and minimize benzodiazepines and opiates as these medications could worsen patient's confusion. SENIOR RD ENGINEER: Per medical team DISPOSITION: Do not recommend acute psychiatric inpatient treatment The auditor/quality to provide the patient with outpatient resources including drug rehab Will sing off. Thanks. Thank you for the consult. Case staffed with Dr. Navarro Medications and Allergies Allergies Allergy/AdvReac Type Severity Reaction Status Date / Time No Known Allergies Allergy Verified 10/03/17 12:16 Home Medications Medication Instructions Recorded Confirmed Last Taken Type Amoxicillin 500 mg PO Q12H #20 tablet 11/24/14 Unknown Rx HYDROcodone/APAP 5-325 [[place] 1 each PO Q6HR PRN #12 tablet 11/24/14 Unknown Rx 5-325 mg TAB] Ibuprofen [Motrin 600 MG tab] 600 mg PO Q8H PRN #30 tablet 11/24/14 Unknown Rx Amoxicillin/K Clav Tab [Augmentin 1 tab PO Q12HR #20 tab 10/03/17 Unknown Rx 875 mg] traMADoL [Ultram] 50 mg PO Q6HR PRN #12 tablet 10/03/17 Unknown Rx Active Meds: Active Medications Amlodipine Besylate (Amlodipine 5 Mg Tab) 5 mg PO DAILY BI Last Admin: 02/03/22 15:20 Dose: 5 mg Ibuprofen (Ibuprofen 800 Mg Tab) 800 mg PO Q8HR PRN PRN Reason: Pain , Severe (7-10) Last Admin: 02/03/22 15:19 Dose: 800 mg Mental Status Exam - Vital signs Last Vital Signs Temp 97.8 F 02/03/22 05:08 Pulse 83 02/03/22 15:20 Resp 18 02/03/22 15:19 BP 153/91 02/03/22 15:20 Pulse Ox 100 02/04/22 03:13 Results Result Diagrams: 02/03/22 05:46 02/03/22 05:46 Abnormal lab results 02/03/22 02/03/22 Range/Units 13:14 13:14 Salicylates < 0.3 L (2.8-20.0) mg/dL Acetaminophen 5.0 L (10.0-30.0) ug/mL All other labs normal.
[2022-02-04 09:45] VITALS: BP 118/80
[2022-02-04] MEDS: amLODIPine 5 MG TAB PO SCH (10:36)
--- NOTE | 2022-02-04 11:27 | Emergency Department Report ---
Blank Doc - Documentation Documentation: 41-year-old male with polysubstance abuse presents to the hospital with chest pain and endorsed homicidal ideation during ED stay. Patient appeared paranoid during initial mental health acetaldehyde converter operator's evaluation. Patient now tells mental health nurse practitioner that his homicidal ideation was a misunderstanding he currently denies suicidal homicidal ideation. He has been cleared for discharge. As per notes his mother has initiated enroll into outpatient substance abuse treatment program. Vital signs unremarkable. No events as per nursing note
== END 2022-02-04 12:09 ==
LOC: ED 04:56
DX: Z04.6 Encounter for general psychiatric examination, requested by authority (principal); R07.89 Other chest pain; R45.850 Homicidal ideations; I10 Essential (primary) hypertension; F15.10 Other stimulant abuse, uncomplicated; F14.10 Cocaine abuse, uncomplicated; F17.200 Nicotine dependence, unspecified, uncomplicated; Z79.899 Other long term (current) drug therapy
CPT/HCPCS: 36415; 71045; 80053; 80307; 82550; 83735; 84484; 85025; 85379; 93005; 96374; 99285; J2060; 80320; G0480

== ENCOUNTER 2022-02-09 08:47 | Emergency (ER) | payer SELFPAY ==
[2022-02-09] MEDS ORDERED: ASPIRIN 81 MG TAB CHEW PO ONE (11:35)
[2022-02-09] MEDS ORDERED: LORazepam 2 MG/ML VIAL IV STA (11:35)
--- NOTE | 2022-02-09 11:40 | Emergency Department Report ---
ED General Adult HPI - General Chief complaint: Chest Pain Stated complaint: CHEST PAIN Time Seen by Provider: 02/09/22 11:17 Source: patient Mode of arrival: Ambulatory Limitations: No Limitations - History of Present Illness Initial comments: Patient presents with complaints of chest pain, retrosternal, sharp, non- radiating, 8/10, worsened by deep breaths, not relieved by anything, associated with SOB, palpitations. Denies diaphoresis, leg swelling, pain in his calves, recent travel, immobilization, surgery, hospitalization, sex HRT use. Patient st ates he took some recreational drug yesterday that he thought was edvin, but was later told was meth. - Related Data Previous Rx's Medication Instructions Recorded Last Taken Type Amoxicillin 500 mg PO Q12H #20 tablet 11/24/14 Unknown Rx HYDROcodone/APAP 5-325 [[place] 1 each PO Q6HR PRN #12 tablet 11/24/14 Unknown Rx 5-325 mg TAB] Ibuprofen [Motrin 600 MG tab] 600 mg PO Q8H PRN #30 tablet 11/24/14 Unknown Rx Amoxicillin/K Clav Tab [Augmentin 1 tab PO Q12HR #20 tab 10/03/17 Unknown Rx 875 mg] traMADoL [Ultram] 50 mg PO Q6HR PRN #12 tablet 10/03/17 Unknown Rx Ibuprofen [Motrin 800 MG tab] 800 mg PO Q8HR PRN #20 tablet 02/04/22 Unknown Rx amLODIPine 5 mg PO DAILY #30 tablet 02/04/22 Unknown Rx Allergies Allergy/AdvReac Type Severity Reaction Status Date / Time No Known Allergies Allergy Verified 10/03/17 12:16 ED Review of Systems ROS: Stated complaint: CHEST PAIN Other details as noted in HPI Comment: All other systems reviewed and negative Constitutional: denies: chills, fever ED Past Medical Hx - Past Medical History Previous Medical History?: No - Social History Smoking Status: Current Every Day Smoker Substance Use Type: Cocaine - Medications Home Medications: Home Medications Medication Instructions Recorded Confirmed Last Taken Type Amoxicillin 500 mg PO Q12H #20 tablet 11/24/14 Unknown Rx HYDROcodone/APAP 5-325 [[place] 1 each PO Q6HR PRN #12 tablet 11/24/14 Unknown Rx 5-325 mg TAB] Ibuprofen [Motrin 600 MG tab] 600 mg PO Q8H PRN #30 tablet 11/24/14 Unknown Rx Amoxicillin/K Clav Tab [Augmentin 1 tab PO Q12HR #20 tab 10/03/17 Unknown Rx 875 mg] traMADoL [Ultram] 50 mg PO Q6HR PRN #12 tablet 10/03/17 Unknown Rx Ibuprofen [Motrin 800 MG tab] 800 mg PO Q8HR PRN #20 tablet 02/04/22 Unknown Rx amLODIPine 5 mg PO DAILY #30 tablet 02/04/22 Unknown Rx ED Physical Exam - General Limitations: No Limitations General appearance: alert, in no apparent distress - Head Head exam: Present: atraumatic, normocephalic - Eye Eye exam: Present: PERRL, EOMI - ENT ENT exam: Present: mucous membranes moist, other (airway patent) - Neck Neck exam: Present: other (supple; no JVD) - Respiratory Respiratory exam: Present: other (good air entry, nml I:E, CTAB, no use of IBETH) - Cardiovascular Cardiovascular Exam: Present: regular rate. Absent: rubs, gallop - GI/Abdominal GI/Abdominal exam: Present: soft, normal bowel sounds. Absent: distended, tenderness - Extremities Exam Extremities exam: Present: other (no lower extremity edema; non tender calves; neg Sharyn's sign bilaterally) - Back Exam Back exam: Present: full ROM. Absent: tenderness - Neurological Exam Neurological exam: Present: alert, oriented X3, CN II-XII intact. Absent: motor sensory deficit - Psychiatric Psychiatric exam: Present: normal affect. Absent: homicidal ideation, suicidal ideation - Skin Skin exam: Present: warm, normal color ED Course Vital Signs 02/09/22 09:05 Temperature 98.4 F Pulse Rate 112 H Respiratory 16 Rate Blood Pressure 159/109 [Left] O2 Sat by Pulse 97 Oximetry ED Medical Decision Making - Lab Data Result diagrams: 02/09/22 11:32 02/09/22 11:45 Laboratory Tests 02/09/22 02/09/22 02/09/22 11:32 11:32 11:32 WBC RBC Hgb Hct MCV MCH MCHC RDW Plt Count Lymph % (Auto) Gaines % (Auto) Eos % (Auto) Baso % (Auto) Lymph # (Auto) Gaines # (Auto) Eos # (Auto) Baso # (Auto) Seg Neutrophils % Seg Neutrophils # D-Dimer Sodium Potassium Chloride Carbon Dioxide Anion Gap BUN Creatinine Estimated GFR BUN/Creatinine Ratio Glucose Calcium Total Bilirubin AST ALT Alkaline Phosphatase Total Creatine Kinase Troponin T Total Protein Albumin Albumin/Globulin Ratio Salicylates < 0.3 L Urine Opiates Screen Urine Methadone Screen Acetaminophen 5.0 L Ur Barbiturates Screen Ur Phencyclidine Scrn Ur Amphetamines Screen U Benzodiazepines Scrn Urine Cocaine Screen U Marijuana (THC) Screen Drugs of Abuse Note Plasma/Serum Alcohol < 0.01 02/09/22 02/09/22 02/09/22 11:32 11:45 11:45 WBC 5.1 RBC 5.10 H Hgb 16.2 H Hct 47.4 H MCV 93 MCH 32 MCHC 34 RDW 13.0 L Plt Count 287 Lymph % (Auto) 31.9 Gaines % (Auto) 9.3 H Eos % (Auto) 0.2 Baso % (Auto) 0.8 Lymph # (Auto) 1.6 Gaines # (Auto) 0.5 Eos # (Auto) 0.0 Baso # (Auto) 0.0 Seg Neutrophils % 57.8 Seg Neutrophils # 2.9 D-Dimer < 135.00 Sodium 138 Potassium 4.2 Chloride 99.4 Carbon Dioxide 23 Anion Gap 20 BUN 8 L Creatinine 1.0 Estimated GFR > 60 BUN/Creatinine Ratio 8 Glucose 103 H Calcium 10.4 H Total Bilirubin 0.50 AST 17 ALT 16 Alkaline Phosphatase 89 Total Creatine Kinase 142 Troponin T < 0.010 Total Protein 7.9 Albumin 5.1 H Albumin/Globulin Ratio 1.8 Salicylates Urine Opiates Screen Urine Methadone Screen Acetaminophen Ur Barbiturates Screen Ur Phencyclidine Scrn Ur Amphetamines Screen U Benzodiazepines Scrn Urine Cocaine Screen U Marijuana (THC) Screen Drugs of Abuse Note Plasma/Serum Alcohol 02/09/22 02/09/22 13:37 Unknown WBC RBC Hgb Hct MCV MCH MCHC RDW Plt Count Lymph % (Auto) Gaines % (Auto) Eos % (Auto) Baso % (Auto) Lymph # (Auto) Gaines # (Auto) Eos # (Auto) Baso # (Auto) Seg Neutrophils % Seg Neutrophils # D-Dimer Sodium Potassium Chloride Carbon Dioxide Anion Gap BUN Creatinine Estimated GFR BUN/Creatinine Ratio Glucose Calcium Total Bilirubin AST ALT Alkaline Phosphatase Total Creatine Kinase Troponin T < 0.010 Total Protein Albumin Albumin/Globulin Ratio Salicylates Urine Opiates Screen Negative Urine Methadone Screen Negative Acetaminophen Ur Barbiturates Screen Negative Ur Phencyclidine Scrn Negative Ur Amphetamines Screen Positive U Benzodiazepines Scrn Negative Urine Cocaine Screen Negative U Marijuana (THC) Screen Positive Drugs of Abuse Note Disclamer Plasma/Serum Alcohol CXR: no acute cardiopulmonary process EK, SR, nml intervals, LVH by R in I, no significant ST deflections from isoelectric line in contiguous leads - Medical Decision Making Diff dz: likely 2/2 methamphetamine abuse. ACS, aortic dissection unlikely. Pneumonia, pneumothorax, PE ruled out. Received aspirin 324 mg PO x 1, ativan 0.5 mg IV x 1. CP resolved. Critical care attestation.: If time is entered above; I have spent that time in minutes in the direct care of this critically ill patient, excluding procedure time. ED Disposition Clinical Impression: Chest pain, Methamphetamine abuse Disposition: 01 HOME / SELF CARE / HOMELESS Is pt being admited?: No Does the pt Need Aspirin: No Condition: Stable Instructions: Substance Use Disorder, Nonspecific Chest Pain, Adult, Celm-nn-Mydt Additional Instructions: Return to the ER if your symptoms worsen. Referrals: CINTHIA SON MD [Primary Care Provider] - 3-5 Days Time of Disposition: 14:50
[2022-02-09 12:04] LABS: Basophils % (Auto) 0.8 % (0.0-1.8); Eosinophils % (Auto) 0.2 % (0.0-4.3); Hematocrit 47.4 % (35.5-45.6); Hemoglobin 16.2 gm/dl (11.8-15.2); Lymphocytes # (Auto) 1.6 K/mm3 (1.2-5.4); Lymphocytes % (Auto) 31.9 % (13.4-35.0); Mean Corpuscular HGB Conc 34 % (32-34); Mean Corpuscular Volume 93 fl (84-94); Monocytes # (Auto) 0.5 K/mm3 (0.0-0.8); Monocytes % (Auto) 9.3 % (0.0-7.3); Platelet Count 287 K/mm3 (140-440)
--- NOTE | 2022-02-09 12:05 | XRay Report ---
CHEST 1 VIEW INDICATION: Chest pain. COMPARISON: 6 days prior FINDINGS: Support devices: None. Heart: Normal. Lungs/Pleura: No acute pulmonary or pleural findings. IMPRESSION: 1. No acute findings. Signer Name: Stanley Ibarra MD Signed: 02/09/2022 12:00 PM Workstation Name: [id number]
[2022-02-09 12:27] LABS: Alanine Aminotransferase 16 units/L (7-56); Albumin 5.1 g/dL (3.9-5); BUN/Creatinine Ratio 8; Blood Urea Nitrogen 8 mg/dL (9-20); Calcium 10.4 mg/dL (8.4-10.2); Hemolysis Index 12
[2022-02-09 13:38] LABS: Benzodiazepines Screen,Urine Negative; Cocaine Screen,Urine Negative; Methadone Screen,Urine Negative; Opiate Screen,Urine Negative
[2022-02-09 14:08] LABS: Amphetamine Screen,Urine Positive; Cannabinoid Screen,Urine Positive
[2022-02-09 15:10] VITALS: BP 134/80
--- NOTE | 2022-02-09 18:09 | Electrocardiograph Report ---
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
--- NOTE | 2022-02-11 16:56 | Electrocardiograph Report ---
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
== END 2022-02-09 15:30 | disposition home or self-care (01) ==
LOC: ED 08:47
DX: R07.89 Other chest pain (principal); F15.10 Other stimulant abuse, uncomplicated; F17.200 Nicotine dependence, unspecified, uncomplicated; F14.90 Cocaine use, unspecified, uncomplicated; Z79.899 Other long term (current) drug therapy
CPT/HCPCS: 36415; 71045; 80053; 80307; 82550; 84484; 85025; 85379; 93005; 96374; 99284; J2060; 80320; G0480

== ENCOUNTER 2022-03-21 04:44 | Emergency (ER) | payer SELFPAY ==
--- NOTE | 2022-03-21 06:20 | XRay Report ---
CHEST 2 VIEWS INDICATION / CLINICAL INFORMATION: CHEST PAIN. COMPARISON: 02/09/2022 FINDINGS: SUPPORT DEVICES: None. HEART / MEDIASTINUM: No significant abnormality. LUNGS / PLEURA: No significant pulmonary or pleural abnormality. No pneumothorax. ADDITIONAL FINDINGS: No significant additional findings. IMPRESSION: 1. No acute findings. Signer Name: Justino Hess MD Signed: 03/21/2022 6:15 AM Workstation Name: [id number]
[2022-03-21 06:41] LABS: Basophils % (Auto) 0.4 % (0.0-1.8); Hematocrit 42.4 % (35.5-45.6); Hemoglobin 14.5 gm/dl (11.8-15.2); Lymphocytes # (Auto) 0.9 K/mm3 (1.2-5.4); Lymphocytes % (Auto) 8.9 % (13.4-35.0); Mean Corpuscular HGB Conc 34 % (32-34); Mean Corpuscular Volume 93 fl (84-94); Monocytes # (Auto) 0.7 K/mm3 (0.0-0.8); Monocytes % (Auto) 6.8 % (0.0-7.3); Platelet Count 260 K/mm3 (140-440); Red Blood Count 4.55 M/mm3 (3.65-5.03); Red Cell Distribution Width 13.1 % (13.2-15.2)
[2022-03-21 07:01] LABS: Alanine Aminotransferase 12 units/L (7-56); Albumin 5.3 g/dL (3.9-5); BUN/Creatinine Ratio 11; Blood Urea Nitrogen 12 mg/dL (9-20); Calcium 10.1 mg/dL (8.4-10.2); Hemolysis Index 5
[2022-03-21] MEDS ORDERED: MORPHINE 4 MG/1 ML INJ IM ONE (09:35)
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
[2022-03-21 12:26] VITALS: BP 120/78
[2022-03-21 13:06] LABS: Amphetamine Screen,Urine Negative; Benzodiazepines Screen,Urine Negative; Methadone Screen,Urine Negative; Opiate Screen,Urine Negative
[2022-03-21 13:27] LABS: Cannabinoid Screen,Urine Positive; Cocaine Screen,Urine Positive
--- NOTE | 2022-03-22 12:21 | Electrocardiograph Report ---
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
--- NOTE | 2022-03-22 12:24 | Electrocardiograph Report ---
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
== END 2022-03-21 17:00 | disposition home or self-care (01) ==
LOC: ED 04:44
DX: R07.9 Chest pain, unspecified (principal); F14.10 Cocaine abuse, uncomplicated; F17.200 Nicotine dependence, unspecified, uncomplicated; Z79.899 Other long term (current) drug therapy
CPT/HCPCS: 36415; 71046; 80053; 80307; 84484; 85025; 93005; 96372; 99283; J2270; 80320; G0480

== ENCOUNTER 2022-06-14 18:41 | Emergency (ER) | payer SELFPAY ==
[2022-06-14] MEDS ORDERED: diazePAM 10 MG/2 ML SYRINGE IV ONE (23:28)
[2022-06-14] MEDS ORDERED: SODIUM CHLORIDE 0.9% 1000 ML 1,000 ML IV ONE (23:28)
--- NOTE | 2022-06-14 23:32 | Emergency Department Report ---
ED General Adult HPI - General Chief complaint: Psych Stated complaint: OVERDOSE,SI PUI?: No Time Seen by Provider: 06/14/22 23:27 Source: patient Mode of arrival: Ambulatory Limitations: No Limitations - History of Present Illness Initial comments: This is a 42-year-old male who denies past medical history came in today with co ncerns of suicidal ideation. Patient state he is not sure what street drug he used last night; may be Laura vs Meth but its was not suicidal attempt but to get high. Patient denies homicidal ideation. Patient denies visual or tactile hallucination. Patient endorsed auditory hallucination; which they are telling him to hurt himself. Patient said that he does not have an active plan on how he wants to hurt himself. Patient denies access to weapons at home. Patient current denies any other symptoms denies fever chill night sweat dizziness blurred vision lightheadedness headache tinnitus ear pain runny nose sore throat loss of taste or smell chest pain palpitation short of breath cough abdominal pain nausea vomiting diarrhea constipation joint pain muscle pain new rash and heat or cold intolerance. Severity scale (0 -10): 6 - Related Data Previous Rx's Medication Instructions Recorded Last Taken Type Amoxicillin 500 mg PO Q12H #20 tablet 11/24/14 Unknown Rx HYDROcodone/APAP 5-325 [[place] 1 each PO Q6HR PRN #12 tablet 11/24/14 Unknown Rx 5-325 mg TAB] Ibuprofen [Motrin 600 MG tab] 600 mg PO Q8H PRN #30 tablet 11/24/14 Unknown Rx Amoxicillin/K Clav Tab [Augmentin 1 tab PO Q12HR #20 tab 10/03/17 Unknown Rx 875 mg] traMADoL [Ultram] 50 mg PO Q6HR PRN #12 tablet 10/03/17 Unknown Rx Ibuprofen [Motrin 800 MG tab] 800 mg PO Q8HR PRN #20 tablet 02/04/22 Unknown Rx amLODIPine 5 mg PO DAILY #30 tablet 02/04/22 Unknown Rx Allergies Allergy/AdvReac Type Severity Reaction Status Date / Time No Known Allergies Allergy Verified 10/03/17 12:16 ED Review of Systems ROS: Stated complaint: OVERDOSE,SI Other details as noted in HPI Comment: All other systems reviewed and negative Constitutional: no symptoms reported Eyes: as per HPI ENT: as per HPI Respiratory: no symptoms reported Cardiovascular: as per HPI Endocrine: no symptoms reported Gastrointestinal: as per HPI Musculoskeletal: as per HPI Skin: as per HPI Neurological: as per HPI Psychiatric: auditory hallucinations, suicidal thoughts. denies: depression, visual hallucinations, homicidal thoughts Hematological/Lymphatic: as per HPI ED Past Medical Hx - Past Medical History Previous Medical History?: No - Social History Smoking Status: Current Every Day Smoker Substance Use Type: Cocaine - Medications Home Medications: Home Medications Medication Instructions Recorded Confirmed Last Taken Type Amoxicillin 500 mg PO Q12H #20 tablet 11/24/14 Unknown Rx HYDROcodone/APAP 5-325 [[place] 1 each PO Q6HR PRN #12 tablet 11/24/14 Unknown Rx 5-325 mg TAB] Ibuprofen [Motrin 600 MG tab] 600 mg PO Q8H PRN #30 tablet 11/24/14 Unknown Rx Amoxicillin/K Clav Tab [Augmentin 1 tab PO Q12HR #20 tab 10/03/17 Unknown Rx 875 mg] traMADoL [Ultram] 50 mg PO Q6HR PRN #12 tablet 10/03/17 Unknown Rx Ibuprofen [Motrin 800 MG tab] 800 mg PO Q8HR PRN #20 tablet 02/04/22 Unknown Rx amLODIPine 5 mg PO DAILY #30 tablet 02/04/22 Unknown Rx ED Physical Exam - General Limitations: No Limitations General appearance: alert, anxious - Head Head exam: Present: atraumatic, normocephalic, normal inspection - Eye Eye exam: Present: normal appearance, PERRL, EOMI Pupils: Present: normal accommodation - ENT ENT exam: Present: normal exam - Neck Neck exam: Present: normal inspection, full ROM - Respiratory Respiratory exam: Present: normal lung sounds bilaterally - Cardiovascular Cardiovascular Exam: Present: tachycardia, normal heart sounds - GI/Abdominal GI/Abdominal exam: Present: soft, normal bowel sounds. Absent: distended, tenderness, guarding, rebound, rigid - Extremities Exam Extremities exam: Present: normal inspection, full ROM, normal capillary refill - Back Exam Back exam: Present: normal inspection, full ROM - Neurological Exam Neurological exam: Present: alert, oriented X3, CN II-XII intact - Psychiatric Psychiatric exam: Present: anxious, suicidal ideation. Absent: flat affect, manic, homicidal ideation - Skin Skin exam: Present: intact, normal color ED Course Vital Signs 06/14/22 06/14/22 18:45 18:47 Pulse Rate 126 H Respiratory 18 Rate Blood Pressure 174/90 [Right] O2 Sat by Pulse 85 96 Oximetry - Reevaluation(s) Reevaluation #1: 06/15/22 04:58 PATIENT IS MEDICALLY CLEARED FOR BEHAVIOR/MENTAL HEALTH EVALUATION. ED Medical Decision Making - Lab Data Result diagrams: 06/15/22 01:15 06/15/22 01:15 Critical care attestation.: If time is entered above; I have spent that time in minutes in the direct care of this critically ill patient, excluding procedure time. ED Disposition Condition: Stable
[2022-06-15 01:35] LABS: Hematocrit 43.4 % (35.5-45.6); Hemoglobin 14.8 gm/dl (11.8-15.2); Mean Corpuscular HGB Conc 34 % (32-34); Mean Corpuscular Volume 96 fl (84-94); Platelet Count 265 K/mm3 (140-440); Red Blood Count 4.52 M/mm3 (3.65-5.03); Red Cell Distribution Width 13.7 % (13.2-15.2)
[2022-06-15 01:54] LABS: Alanine Aminotransferase 16 units/L (7-56); BUN/Creatinine Ratio 18; Blood Urea Nitrogen 16 mg/dL (9-20); Calcium 9.5 mg/dL (8.4-10.2); Hemolysis Index 9
[2022-06-15 09:54] LABS: Benzodiazepines Screen,Urine Negative; Methadone Screen,Urine Negative; Opiate Screen,Urine Negative
[2022-06-15 10:08] LABS: Amphetamine Screen,Urine Positive; Cannabinoid Screen,Urine Positive; Cocaine Screen,Urine Positive
--- NOTE | 2022-06-15 10:11 | Consultation ---
History of Present Illness - Reason for Consult Consult date: 06/15/22 Reason for consult: illicit drug use, OD - History of Present Psychiatric Illness The patient was seen today. He is calm, cooperative and polite. He says he unintentionally overdosed on meth. The patient says he thought it was Laura, but believe it was meth. He says "it had me thinking crazy." The patient says "but I was getting high, basically, not trying to kill myself." He says "look, I work. 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 I have a family, everything, good life. I wasn't trying to do nothing crazy like hurt myself." He says "I'm good." The patient denies any past psych history or being on any psych meds. He says "no, I'm normal." He denies SI/HI or hallucinations of any kind. The patient is positive for cocaine and methamphetamine PAST PSYCHIATRIC HISTORY: Diagnoses: Denies Suicide attempts or Self-harm behavior: Denies Prior psychiatric hospitalizations: Denies Substance Abuse history: Laura, denies others Previous psychiatric medications tried: Denies Outpatient treatment: Denies PAST MEDICAL HISTORY: None reported Family Psychiatric History: None reported or documented SOCIAL HISTORY Marital Status: Living Arrangements: With family Employment Status: Employed Access to guns/weapons: Denies Education: Yes History of Abuse:Denies Legal History: Denies REVIEW OF SYSTEMS Constitutional: Negative for weight loss ENT: Negative for stridor Respiratory: Negative for cough or hemoptysis All other systems reviewed and are negative MENTAL STATUS EXAMINATION General Appearance and Behavior: Age appropriate, wearing appropriate clothes, cooperative, polite with questioning, good eye contact Cooperation: cooperative Psychomotor Behavior: Psychomotor normal Mood: Better Affect and affective range: congruent with stated affect Thought Process: Goal directed Thought Content: Reality oriented Speech: Normal volume, Regular rate and rhythm Suicidal Ideation: Denies Homicidal Ideation: Denies Hallucination: Denies Delusions: None elicited Impulse Control: Limited Insight and Judgment: Limited Memory: Intact Attention: attentive Orientation: Alert and oriented Diagnoses: Polysubstance Use Disorder with Substance Induced Mood Treatment Plan d/c 1013 No scripts given Medical: Per primary Sitter: Defer to primary Disposition: Do not recommend acute psychiatric inpatient treatment. The patient understand to seek immediate assistance if SI/HI arise The coater smoking pipe to give all necessary resources The patient to abstain from all illicit drug use Will sign off. Thanks Case staffed with Dr. Navarro Medications and Allergies Allergies Allergy/AdvReac Type Severity Reaction Status Date / Time No Known Allergies Allergy Verified 10/03/17 12:16 Home Medications Medication Instructions Recorded Confirmed Last Taken Type Amoxicillin 500 mg PO Q12H #20 tablet 11/24/14 Unknown Rx HYDROcodone/APAP 5-325 [[place] 1 each PO Q6HR PRN #12 tablet 11/24/14 Unknown Rx 5-325 mg TAB] Ibuprofen [Motrin 600 MG tab] 600 mg PO Q8H PRN #30 tablet 11/24/14 Unknown Rx Amoxicillin/K Clav Tab [Augmentin 1 tab PO Q12HR #20 tab 10/03/17 Unknown Rx 875 mg] traMADoL [Ultram] 50 mg PO Q6HR PRN #12 tablet 10/03/17 Unknown Rx Ibuprofen [Motrin 800 MG tab] 800 mg PO Q8HR PRN #20 tablet 02/04/22 Unknown Rx amLODIPine 5 mg PO DAILY #30 tablet 02/04/22 Unknown Rx Mental Status Exam - Vital signs Last Vital Signs Temp Pulse 126 H 06/14/22 18:45 Resp 18 06/14/22 18:45 BP 174/90 06/14/22 18:45 Pulse Ox 96 06/15/22 09:23 Results Result Diagrams: 06/15/22 01:15 06/15/22 01:15 Abnormal lab results 06/15/22 06/15/22 06/15/22 Range/Units 01:15 01:15 01:15 MCV 96 H (84-94) fl MCH 33 H (28-32) pg Salicylates < 0.3 L (2.8-20.0) mg/dL Acetaminophen 5.0 L (10.0-30.0) ug/mL All other labs normal.
[2022-06-15 10:18] LABS: Mucus,Urine 3+ /HPF
[2022-06-15 10:28] LABS: Color,Urine Yellow (Yellow)
[2022-06-15 11:01] VITALS: BP 120/72
--- NOTE | 2022-06-15 12:34 | Event Note ---
Date: 06/15/22 The patient was evaluated in the emergency department for symptoms described in the history of present illness. He/she was evaluated in the context of the global COVID-19 pandemic, which necessitated consideration that the patient might be at risk for infection with the virus that causes COVID-19. Institutional protocols and algorithms that pertain to the evaluation of patients at risk for COVID-19 are in a state of rapid change based on information released by regulatory bodies including the CDC and federal and state organizations. These policies and algorithms were followed during the patient's care in the emergency department. Please note that these policies, procedures and recommendations changed on a rapid basis. Laboratory studies, vital signs, nursing documentation, ER documentation, and psychiatric documentation are reviewed and appreciated. Nursing team reports no acute events this morning or concerns. The patient is awake and ambulating and does not appear to be in any acute distress. The patient was deemed medically suitable for psychiatric disposition and placement during his initial ER evaluation. The patient continues to remain medically suitable for psychiatric placement and disposition. He is currently pending psychiatric placement. The psychiatric team have recommended that he does not meet criteria for 1013, or involuntary confinement. He is advised to abstain from recreational methamphetamine consumption and drug abuse. The patient is asking to be discharged. Nursing team reports no acute issues. Vital Signs 06/14/22 06/14/22 06/15/22 18:45 18:47 09:23 Temperature Pulse Rate 126 H Respiratory 18 Rate Blood Pressure 174/90 [Right] O2 Sat by Pulse 85 96 96 Oximetry 06/15/22 11:00 Temperature 98.3 F Pulse Rate 80 Respiratory 18 Rate Blood Pressure 120/72 [Right] O2 Sat by Pulse 96 Oximetry Lab Results 06/15/22 06/15/22 06/15/22 Range/Units 01:15 01:15 01:15 WBC 6.2 (4.5-11.0) K/mm3 RBC 4.52 (3.65-5.03) M/mm3 Hgb 14.8 (11.8-15.2) gm/dl Hct 43.4 (35.5-45.6) % MCV 96 H (84-94) fl MCH 33 H (28-32) pg MCHC 34 (32-34) % RDW 13.7 (13.2-15.2) % Plt Count 265 (140-440) K/mm3 Sodium 145 (137-145) mmol/L Potassium 4.1 (3.6-5.0) mmol/L Chloride 106.0 (98-107) mmol/L Carbon Dioxide 24 (22-30) mmol/L Anion Gap 19 mmol/L BUN 16 (9-20) mg/dL Creatinine 0.9 (0.8-1.3) mg/dL Estimated GFR > 60 ml/min BUN/Creatinine Ratio 18 % Glucose 93 (75-100) mg/dL Calcium 9.5 (8.4-10.2) mg/dL Magnesium 2.00 (1.7-2.3) mg/dL Total Bilirubin 0.70 (0.1-1.2) mg/dL AST 18 (5-40) units/L ALT 16 (7-56) units/L Alkaline Phosphatase 90 (35-129) units/L Total Creatine Kinase 165 (55-170) units/L Total Protein 7.4 (6.3-8.2) g/dL Albumin 5.0 (3.9-5) g/dL Albumin/Globulin Ratio 2.1 % Urine Color (Yellow) Urine Turbidity (Clear) Specific [place] (Man) (1.003-1.030) Ur Protein (Man) (Negative) mg/dL Ur Ketones (Man) (Negative) Ur Nitrite (Man) (Negative) Ur Reducing Substances Urine Bilirubin (Man) (Negative) Urine Ictotest Leukocyte Esterase (Man) (Negative) Urine WBC (Auto) (0.0-6.0) /HPF Urine RBC (Auto) (0.0-6.0) /HPF Urine RBC (Manual) (Negative) Urine Mucus /HPF Salicylates < 0.3 L (2.8-20.0) mg/dL Urine Opiates Screen Urine Methadone Screen Acetaminophen (10.0-30.0) ug/mL Ur Barbiturates Screen Ur Phencyclidine Scrn Ur Amphetamines Screen U Benzodiazepines Scrn Urine Cocaine Screen U Marijuana (THC) Screen Drugs of Abuse Note Plasma/Serum Alcohol (0-0.07) % 06/15/22 06/15/22 06/15/22 Range/Units 01:15 01:15 09:21 WBC (4.5-11.0) K/mm3 RBC (3.65-5.03) M/mm3 Hgb (11.8-15.2) gm/dl Hct (35.5-45.6) % MCV (84-94) fl MCH (28-32) pg MCHC (32-34) % RDW (13.2-15.2) % Plt Count (140-440) K/mm3 Sodium (137-145) mmol/L Potassium (3.6-5.0) mmol/L Chloride (98-107) mmol/L Carbon Dioxide (22-30) mmol/L Anion Gap mmol/L BUN (9-20) mg/dL Creatinine (0.8-1.3) mg/dL Estimated GFR ml/min BUN/Creatinine Ratio % Glucose (75-100) mg/dL Calcium (8.4-10.2) mg/dL Magnesium (1.7-2.3) mg/dL Total Bilirubin (0.1-1.2) mg/dL AST (5-40) units/L ALT (7-56) units/L Alkaline Phosphatase (35-129) units/L Total Creatine Kinase (55-170) units/L Total Protein (6.3-8.2) g/dL Albumin (3.9-5) g/dL Albumin/Globulin Ratio % Urine Color Yellow (Yellow) Urine Turbidity Slightly cloudy (Clear) Specific [place] (Man) 1.030 (1.003-1.030) Ur Protein (Man) 1+ (Negative) mg/dL Ur Ketones (Man) Negative (Negative) Ur Nitrite (Man) Negative (Negative) Ur Reducing Substances Not Reportable Urine Bilirubin (Man) Negative (Negative) Urine Ictotest Not Reportable Leukocyte Esterase (Man) Negative (Negative) Urine WBC (Auto) 7.0 H (0.0-6.0) /HPF Urine RBC (Auto) 12.0 (0.0-6.0) /HPF Urine RBC (Manual) Trace (Negative) Urine Mucus 3+ /HPF Salicylates (2.8-20.0) mg/dL Urine Opiates Screen Urine Methadone Screen Acetaminophen 5.0 L (10.0-30.0) ug/mL Ur Barbiturates Screen Ur Phencyclidine Scrn Ur Amphetamines Screen U Benzodiazepines Scrn Urine Cocaine Screen U Marijuana (THC) Screen Drugs of Abuse Note Plasma/Serum Alcohol < 0.01 (0-0.07) % 08/31/22 Range/Units 09:21 WBC (4.5-11.0) K/mm3 RBC (3.65-5.03) M/mm3 Hgb (11.8-15.2) gm/dl Hct (35.5-45.6) % MCV (84-94) fl MCH (28-32) pg MCHC (32-34) % RDW (13.2-15.2) % Plt Count (140-440) K/mm3 Sodium (137-145) mmol/L Potassium (3.6-5.0) mmol/L Chloride (98-107) mmol/L Carbon Dioxide (22-30) mmol/L Anion Gap mmol/L BUN (9-20) mg/dL Creatinine (0.8-1.3) mg/dL Estimated GFR ml/min BUN/Creatinine Ratio % Glucose (75-100) mg/dL Calcium (8.4-10.2) mg/dL Magnesium (1.7-2.3) mg/dL Total Bilirubin (0.1-1.2) mg/dL AST (5-40) units/L ALT (7-56) units/L Alkaline Phosphatase (35-129) units/L Total Creatine Kinase (55-170) units/L Total Protein (6.3-8.2) g/dL Albumin (3.9-5) g/dL Albumin/Globulin Ratio % Urine Color (Yellow) Urine Turbidity (Clear) Specific [place] (Man) (1.003-1.030) Ur Protein (Man) (Negative) mg/dL Ur Ketones (Man) (Negative) Ur Nitrite (Man) (Negative) Ur Reducing Substances Urine Bilirubin (Man) (Negative) Urine Ictotest Leukocyte Esterase (Man) (Negative) Urine WBC (Auto) (0.0-6.0) /HPF Urine RBC (Auto) (0.0-6.0) /HPF Urine RBC (Manual) (Negative) Urine Mucus /HPF Salicylates (2.8-20.0) mg/dL Urine Opiates Screen Negative Urine Methadone Screen Negative Acetaminophen (10.0-30.0) ug/mL Ur Barbiturates Screen Negative Ur Phencyclidine Scrn Negative Ur Amphetamines Screen Positive U Benzodiazepines Scrn Negative Urine Cocaine Screen Positive U Marijuana (THC) Screen Positive Drugs of Abuse Note Disclamer Plasma/Serum Alcohol (0-0.07) %
== END 2022-06-15 12:49 | disposition home or self-care (01) ==
LOC: ED 18:41
DX: R45.851 Suicidal ideations (principal); F17.200 Nicotine dependence, unspecified, uncomplicated; F12.90 Cannabis use, unspecified, uncomplicated
CPT/HCPCS: 36415; 80053; 80307; 80320; 81001; 82550; 83735; 85027; 99284; G0480